=== PATIENT | male | born 1940 | race Caucasian/White ===

== ENCOUNTER → 2018-07-17 13:20 | Outpatient (BNVA) | payer MEDICARE, OTHER, SELFPAY | PROVIDERS: PCP Family Medicine; Visit Provider Urology | DX: N40.1 Benign prostatic hyperplasia with lower urinary tract symptoms (principal); R39.198 Other difficulties with micturition | CPT/HCPCS: 99213 ==

== ENCOUNTER 2018-11-12 09:48 | Outpatient (CLI) | payer MEDICARE, OTHER, SELFPAY ==
[2018-11-12 11:09] LABS: Anion Gap 6.8 mmol/L (3-11); BUN 17 mg/dL (7-18); CO2 30.2 mmol/L (21.0-32.0); Calcium 9.1 mg/dL (8.5-10.1); Chloride 104 mmol/L (98-107); Glucose 205 mg/dL (70-100); Potassium 5.1 mmol/L (3.5-5.1); Sodium 141 mmol/L (136-145)
== END 2018-11-12 10:08 ==
PROVIDERS: PCP Family Medicine; Visit Provider Family Medicine
DX: N18.9 Chronic kidney disease, unspecified (principal)
CPT/HCPCS: 36415; 80048

== ENCOUNTER 2019-03-04 00:57 | Outpatient (CLI) | payer MEDICARE, OTHER, SELFPAY ==
--- NOTE | 2019-03-04 07:31 | DI.US_ITS ---
SYMPTOM/DIAGNOSIS: F/U AAA, I71.4 AORTA ULTRASOUND: Limited ultrasound examination was performed to evaluate abdominal aortic aneurysm. There is an aneurysm of the distal abdominal aorta as noted on previous ultrasound of 04/29/16 at which time the infrarenal aneurysm was measured at about 5.0 cm. in diameter. On today's examination, the aneurysm is again seen and maximal diameter is 57 by 57 mm. Common iliac arteries are within normal limits in diameter measuring 15 mm. in greatest diameter on the right and 17 mm. in diameter on the left. No aneurysm of the proximal abdominal aorta is seen. CONCLUSION: Saccular aneurysm, infrarenal, maximal diameter of 57 mm., increased from 50 mm. on examination of 04/29/16.
== END 2019-03-04 01:17 ==
PROVIDERS: PCP Family Medicine; Visit Provider Family Medicine
DX: I71.4 Abdominal aortic aneurysm, without rupture (principal)
CPT/HCPCS: 76775

== ENCOUNTER 2019-04-08 10:54 | Outpatient (CLI) | payer MEDICARE, OTHER, SELFPAY ==
[2019-04-08 11:20] LABS: CREATININE 1.18 mg/dL (0.70-1.30); Estimated GFR 59.55 (mL/min/1.73m2)
== END 2019-04-08 11:14 ==
PROVIDERS: PCP Family Medicine; Visit Provider Surgery
DX: I71.4 Abdominal aortic aneurysm, without rupture (principal)
CPT/HCPCS: 36415; 82565

== ENCOUNTER → 2019-07-25 12:39 | Outpatient (BNVA) | payer MEDICARE, OTHER, SELFPAY | PROVIDERS: PCP Family Medicine; Referring Provider Family Medicine; Visit Provider Urology | DX: N40.1 Benign prostatic hyperplasia with lower urinary tract symptoms (principal); R35.1 Nocturia; I10 Essential (primary) hypertension; E11.9 Type 2 diabetes mellitus without complications | CPT/HCPCS: 99213 ==

== ENCOUNTER → 2019-09-03 13:46 | Outpatient (BNVA) | payer MEDICARE, OTHER, SELFPAY | PROVIDERS: PCP Family Medicine; Referring Provider Family Medicine; Visit Provider Student in an Organized Health Care Education/Training Program | DX: M65.311 Trigger thumb, right thumb (principal); E11.9 Type 2 diabetes mellitus without complications; Z79.84 Long term (current) use of oral hypoglycemic drugs; I10 Essential (primary) hypertension | CPT/HCPCS: 99204; 99215 ==

== ENCOUNTER 2019-09-05 07:28 | Day surgery (SDC) | payer MEDICARE, OTHER, SELFPAY ==
--- NOTE | 2019-09-05 07:28 | W.PM.DSUDISC ---
Discharge Plan Disposition Patient Disposition: HOME Condition: Stable Discharge Details Reason For Visit: (R) TRIGGER FINGER Attending Provider: Matthieu Collins Primary Care Provider: Fabián Dawn Home Meds and New Rx's Prescriptions: New oxycodone 5 mg tablet 5 mg PO Q4H PRN (Reason: pain, severe) Qty: 5 RF: 0 Continued metformin 1,000 mg tablet 1,000 mg PO BID Qty: 90 RF: 3 lisinopril 10 mg tablet 10 mg PO DAILY Qty: 90 RF: 3 tadalafil [Cialis] 5 mg tablet 5 mg PO DAILY Qty: 90 RF: 4 aspirin [Aspir-81] 81 MG tablet,delayed release (DR/EC) 81 mg PO DAILY RF: 0 Prilosec OTC 20 MG tablet,delayed release (DR/EC) 20 mg PO DAILY Qty: 90 RF: 1 atorvastatin 40 mg tablet 40 mg PO DAILY Qty: 90 RF: 3 amlodipine 10 mg tablet 10 mg PO DAILY 90 Days Qty: 90 RF: 3 PreserVision AREDS 1 EACH capsule 1 tab PO BID RF: 0 Discharge Instructions Additional Instructions: Surgery: Right thumb trigger release Activity: Gradual return to full activity for the next few weeks Prescriptions: Oxycodone 5 mg take 1-2 every 4-6 hours as needed for severe pain You may use [id number] Tylenol (acetaminophen) or Motrin (ibuprofen) as needed for mild to moderate pain. These pain medications may be taken all at once or in different combinations as needed. Also, recommend Colace (docusate) as a stool softener as surgery and pain medicine cause constipation. Dressings: Leave dressing in place for 3 to 5 days. Then may remove and cover incision with Band-Aids as needed. Keep incision clean and dry at all times until follow-up. Follow-up: 10-[address] Collins Please call the office during business hours with any questions or concerns. Let us know right away if you develop any redness, drainage, fevers, chest pain, or trouble breathing. Do not drink alcohol or drive for at least 24 hours after anesthesia. Stand Alone Forms: Yumiko Boothe (DSU) Referrals: Matthieu Collins MD [ [facility] STAFF PHYSICIAN] - Discharge Orders Discharge Orders: Discharge Order (Routine); Ordered 11/07/19 Ordered By: Matthieu Collins DS: Diagnosis Discharge Diagnosis (1) Trigger finger of right thumb: Start date: 09/05/19 Start time: 09:23 Status: Acute
[2019-09-05 07:47] VITALS: BP 168/73; PULSE 66; RESP 16; TEMP 36.2; O2SAT 97
--- NOTE | 2019-09-05 09:25 | W.PM.OP ---
Date of service: 09/05/19 Time of Service: 10:23 Operative Note Operative Note DATE OF PROCEDURE: 09/05/19 PRE-OP DIAGNOSIS: Right thumb trigger finger POST-OP DIAGNOSIS: same PROCEDURE: Right thumb trigger finger release SURGEON: Matthieu Collins [employer] DESIGNER: Osiris Fajardo ANESTHESIA: local ESTIMATED BLOOD LOSS: 5 COMPLICATIONS: None Patient was transported to: PACU Patient's condition: stable Indications: Please see complete medical record for details. Procedure Description: The patient was taken to the operating room and transferred to the operating room table. All bony prominences were well-padded. Preoperative antibiotics were omitted for clean hand surgery. The right upper extremity was prepped and draped in the usual sterile fashion. The correct patient, procedure, and side of the procedure were all verified prior to incision. The area about the incision was pre-injected with 9 cc of 1% lidocaine with epinephrine 1 cc of sodium bicarbonate. The thumb was held in opposition and a 2 cm transverse incision was made in a flexion crease centered over the thumb A1 regine. A combination of sharp and blunt dissection was used to expose the regine while taking care to retract and protect the area of the radial digital nerve. The regine was sharply incised using a 15 blade from distal to proximal. Complete release was confirmed by spreading with hemostat throughout. The FPL tendon was delivered from the wound using a Ragnell and found to have excellent excursion. The patient also demonstrated full active flexion and extension of the thumb without any mechanical symptoms. The wound was copiously irrigated. Hemostasis was confirmed. The skin was closed using 4-0 Monocryl in a buried interrupted fashion. Skin glue was applied over the incision. Nonadhesive gauze and dry gauze were applied on top followed by sterile web roll. Wrist and hand were wrapped and 2 inch Joe wrap. Patient tolerated local procedure well. He ablated back to the day surgery unit without complication.
[2019-09-05] MEDS: Sodium Bicarbonate 50 MEQ/50 ML VIAL (09:53)
[2019-09-05 10:40] VITALS: BP 177/80
== END 2019-09-05 10:48 | disposition home or self-care (01) ==
PROVIDERS: PCP Family Medicine; Visit Provider Student in an Organized Health Care Education/Training Program
PROC: (CPT 26055; principal; 2019-09-05 08:30)
DX: M65.311 Trigger thumb, right thumb (principal); I10 Essential (primary) hypertension; E11.9 Type 2 diabetes mellitus without complications; Z79.84 Long term (current) use of oral hypoglycemic drugs
CPT/HCPCS: 26055

== ENCOUNTER 2019-11-29 10:09 | Outpatient (CLI) | payer MEDICARE, OTHER, SELFPAY ==
[2019-11-29 11:06] LABS: Anion Gap 7.4 mmol/L (3-11); BUN 17 mg/dL (7-18); CO2 27.6 mmol/L (21.0-32.0); CREATININE 1.29 mg/dL (0.70-1.30); Calcium 8.6 mg/dL (8.5-10.1); Chloride 105 mmol/L (98-107); Estimated GFR 53.59 (mL/min/1.73m2); Glucose 191 mg/dL (74-106); Potassium 5.1 mmol/L (3.5-5.1); Sodium 140 mmol/L (136-145)
== END 2019-11-29 10:29 ==
PROVIDERS: PCP Family Medicine; Visit Provider Family Medicine
DX: I10 Essential (primary) hypertension (principal)
CPT/HCPCS: 36415; 80048

== ENCOUNTER → 2019-12-26 13:52 | Outpatient (BNVA) | payer MEDICARE, OTHER, SELFPAY | PROVIDERS: PCP Family Medicine; Referring Provider Family Medicine; Visit Provider Nurse Practitioner Gerontology | DX: R30.0 Dysuria (principal) | CPT/HCPCS: 81003; 99213 ==

== ENCOUNTER 2019-12-26 15:04 | Outpatient (REF) | payer MEDICARE, OTHER, SELFPAY | END 2019-12-26 15:24 | LOC: LBN 15:04 | PROVIDERS: PCP Family Medicine; Visit Provider Nurse Practitioner Gerontology | DX: R30.0 Dysuria (principal) | CPT/HCPCS: 87086 ==

== ENCOUNTER → 2020-07-17 12:44 | Outpatient (BNVA) | payer MEDICARE, OTHER, SELFPAY | PROVIDERS: PCP Family Medicine; Referring Provider Family Medicine; Visit Provider Urology | DX: N40.0 Benign prostatic hyperplasia without lower urinary tract symptoms (principal); E11.9 Type 2 diabetes mellitus without complications; I10 Essential (primary) hypertension; Z79.84 Long term (current) use of oral hypoglycemic drugs | CPT/HCPCS: 81003; 99213 ==

== ENCOUNTER 2020-10-13 02:52 | Outpatient (CLI) | payer MEDICARE, OTHER, SELFPAY ==
[2020-10-13 11:00] LABS: BUN 20 mg/dL (7-18); CREATININE 1.33 mg/dL (0.70-1.30); Calcium 9.3 mg/dL (8.5-10.1); Chloride 104 mmol/L (98-107); Estimated GFR 51.61 (mL/min/1.73m2); Glucose 172 mg/dL (74-106); Potassium 5.6 mmol/L (3.5-5.1); Sodium 140 mmol/L (136-145)
== END 2020-10-13 03:12 ==
PROVIDERS: PCP Family Medicine; Visit Provider Family Medicine
DX: E11.9 Type 2 diabetes mellitus without complications (principal)
CPT/HCPCS: 36415; 80048

== ENCOUNTER 2021-01-20 04:20 | Outpatient (CLI) | payer MEDICARE, OTHER, SELFPAY ==
[2021-01-20 12:37] LABS: Anion Gap 8.8 mmol/L (3-11); BUN 24 mg/dL (7-18); CO2 25.2 mmol/L (21.0-32.0); CREATININE 1.2 mg/dL (0.70-1.30); Calcium 8.7 mg/dL (8.5-10.1); Chloride 105 mmol/L (98-107); Estimated GFR 58.11 (mL/min/1.73m2); Glucose 199 mg/dL (74-106); Potassium 5.3 mmol/L (3.5-5.1); Sodium 139 mmol/L (136-145)
== END 2021-01-20 04:21 | disposition home or self-care (01) ==
LOC: LBO 04:20
PROVIDERS: PCP Family Medicine; Visit Provider Family Medicine
DX: E27.49 Other adrenocortical insufficiency (principal)
CPT/HCPCS: 36415; 80048

== ENCOUNTER → 2021-07-20 07:52 | Outpatient (BNVA) | payer MEDICARE, OTHER, SELFPAY | PROVIDERS: PCP Family Medicine; Referring Provider Family Medicine; Visit Provider Urology | DX: N40.0 Benign prostatic hyperplasia without lower urinary tract symptoms (principal); R97.20 Elevated prostate specific antigen [PSA]; Z79.899 Other long term (current) drug therapy | CPT/HCPCS: 99213 ==

== ENCOUNTER 2021-07-31 18:39 | Emergency (ER) | payer MEDICARE, OTHER, SELFPAY ==
[2021-07-31] VITALS (11 sets, daily range): BP systolic 177–243; BP diastolic 53–97; PULSE 48–62; RESP 13–40; TEMP 36.5; O2SAT 95–97
--- NOTE | 2021-07-31 19:29 | ED.GENADUL_ITS ---
Discharge Plan Disposition Patient Disposition: HOME Condition: Good Discharge Details Clinical Impression: Elevated blood pressure reading Primary Care Provider: Fabián Dawn ED Provider: Elaine Andrew Home Meds and New Rx's Prescriptions: New hydrochlorothiazide 12.5 mg capsule 12.5 mg PO DAILY Qty: 2 RF: 0 Continued tadalafil [Cialis] 5 mg tablet 5 mg PO DAILY Qty: 90 RF: 4 atenolol 50 mg tablet 50 mg PO DAILY Qty: 90 RF: 3 atorvastatin 40 mg tablet 40 mg PO DAILY Qty: 90 RF: 3 aspirin [Aspir-81] 81 MG tablet,delayed release (DR/EC) 81 mg PO DAILY RF: 0 omeprazole magnesium [Prilosec OTC] 20 MG tablet,delayed release (DR/EC) 20 mg PO DAILY Qty: 90 RF: 1 amlodipine 10 mg tablet 10 mg PO DAILY 90 Days Qty: 90 RF: 3 lisinopril 40 mg tablet 40 mg PO DAILY Qty: 90 RF: 3 metformin 1,000 mg tablet 1,000 mg PO BID Qty: 180 RF: 3 PreserVision AREDS 1 EACH capsule 1 tab PO BID RF: 0 Discharge Instructions Additional Instructions: Take the hydrochlorothiazide if your blood pressure is elevated over 190, take 12.5 mg, you may take an additional dose in 12 hours should he have persistently elevated blood pressure over 190 Keep your appointment with your doctor Continue all your additional prescribed medications Should you develop headache, dizziness, chest pain, shortness of breath with elevated blood pressure you must be reevaluated immediately Please return earlier should you have new or worsening complaints Referrals: Fabián Dawn DO [Primary Care Provider] - Discharge Data Discharge Date/Time-TO BE ENTERED AT DEPARTURE: 07/31/21 19:40 Medical Decision Making Patient is alert and oriented at baseline I spoke with his Fatou ATKINS and she is comfortable with CT imaging and chest x-ray Chest x-ray does not show evidence of pneumonia CT head and cervical spine do not show evidence of acute abnormality Patient did have a left humeral fracture visualized that is removed in nature Patient tolerated suture placement without incident He has been alert baseline since the event occurred He will be discharged back to the rehab center and is comfortable with this plan Tetanus to date Return precautions discussed Suture will need to be removed in the next 7 days Medical Records Medical records reviewed: Yes I reviewed the patient's medical records. HPI General Mode of arrival: ambulatory . Date/Time Provider Initiated Documentation: 07/31/21 19:01 . Limitations to Documentation: no limitations . Information obtained by: patient . HPI Narrative: This 80-year-old male with history of carotid stenosis, dementia, BPH, hyperlipidemia presents with report of fall. He was reportedly trying to care for his pants down and stand up to use the restroom when he lost his balance, falling. There was no loss of consciousness. He was helped up immediately and EMS was called for evaluation. He acquired a laceration. His tetanus is reportedly up-to-date. He has not reportedly been vomiting and is not anticoagulated. There were no additional required injuries reportedly. Related Data Home Medications Medication Instructions Recorded Confirmed aspirin [Aspir-81] 81 mg PO DAILY tab-cap 02/14/13 07/31/21 PreserVision AREDS 1 tab PO BID 12/15/16 07/31/21 omeprazole magnesium [Prilosec OTC] 20 mg PO DAILY #90 cap 07/04/17 07/31/21 amlodipine 10 mg tablet 10 mg PO DAILY 90 Days #90 tab-cap 03/21/19 07/31/21 lisinopril 40 mg tablet 40 mg PO DAILY #90 tab 10/28/20 07/31/21 atorvastatin 40 mg tablet 40 mg PO DAILY #90 tab-cap 02/01/21 07/31/21 metformin 1,000 mg tablet 1,000 mg PO BID #180 tab 02/02/21 07/31/21 atenolol 50 mg tablet 50 mg PO DAILY #90 tab 05/04/21 07/31/21 tadalafil 5 mg tablet 5 mg PO DAILY #90 tab-cap 07/20/21 07/31/21 hydrochlorothiazide 12.5 mg PO DAILY #2 cap 07/31/21 Previous Rx's Medication Instructions Recorded amlodipine 10 mg tablet 10 mg PO DAILY 90 Days #90 tab-cap 03/21/19 lisinopril 40 mg tablet 40 mg PO DAILY #90 tab 10/28/20 atorvastatin 40 mg tablet 40 mg PO DAILY #90 tab-cap 02/01/21 metformin 1,000 mg tablet 1,000 mg PO BID #180 tab 02/02/21 atenolol 50 mg tablet 50 mg PO DAILY #90 tab 05/04/21 tadalafil 5 mg tablet 5 mg PO DAILY #90 tab-cap 07/20/21 hydrochlorothiazide 12.5 mg PO DAILY #2 cap 07/31/21 Allergies Allergy/AdvReac Type Severity Reaction Status Date / Time tamsulosin AdvReac Intermediate Dizziness Verified 07/31/21 18:51 General Stated Complaint: GenMedical PELON: 3 Review of Systems All systems reviewed & are unremarkable except as noted in HPI and below PFSH Medical History (Updated 07/31/21 @ 19:31 by ARCADIO Chiu) Abdominal aortic aneurysm (AAA) without rupture (04/29/16) Abdominal US: 5cm AAA above bifurcation; 4.8 x 4.2 by CTA [facility] Dr Morales Wright, f/u 09/2016 [facility]; Bruit 04/17/19 5.1 cm , 10/21/19 5.4 cm, repeat 6 mos. 06/22/20 AAA=5.6 cm Alkaline phosphatase raised (02/08/12) bone (normal GGT repeatedly) BPH w/o urinary obs/LUTS bx neg 05/2010 Diabetes mellitus (04/29/02) DX 2001 MULTIPLE FBS>126; ONE PP 276 IN 12/2005; A1C 7.0 IN 2002; CONTROL DIET, METFORMIN, EXERCISE Elevated PSA (06/20/16) Essential hypertension (01/31/00) h/o hctz, lisinopril; d/c hctz 11/2013; d/c lisinopril 12/2013, resume lisinopril 06/2014 Gastroesophageal reflux disease (02/08/12) Heart murmur, systolic (05/31/16) mild /AR on ECHO 06/06/16, EF 60% Hyperlipidemia (02/08/12) Hypoaldosteronism (11/04/16) ttendency to hyperkalemia: no salt substitutes Obesity, unspecified (02/08/12) Peripheral vascular disease s/p bilateral carotid endarterectomies ~2002 Sensorineural hearing loss, bilateral (07/09/15) Trigger finger of right thumb Surgical History cataract extraction (07/07/15) intraocular lens implant right Dr Ortiz; also Left cataract extraction (07/21/15) intraocular lens implant right Dr Ortiz; also Left Extraction of cataract Prostate Biopsy (06/08/10) [facility] for elevated PSA, neg Family History Mother , old age at age 95. No problems noted. Father , liver problems at age 68. Liver disease Brother , brain aneurysm at age 64. No problems noted. Brother Age: 87 Neoplasm Social History (Updated 08/10/20 @ 14:03 by Deysi Cornell LPN) Smoking/Tobacco Use Status: Former Tobacco Use Quit Date: 08/30/19 Smoking risk assessment performed?: Yes Alcohol Intake: current Alcohol Intake frequency: a few times a week Drug use: Never Substance use type: does not use Household members: significant other Housing: house Communication Needs: Hard of Hearing and Corrective Lenses Pets and animals: Yes Pets and animals: dog(s) Current gender identity: male What is your relationship status?: Panel score (0-1 are the most socially isolated patients): 0 What type of physical activity do you participate in: other Details: physically active daily 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 2 inch laceration noted Mouth: oral mucosae normal Other: Uvula midline, no hemotympanum Eyes Pupils: PERRL Neck Other: No midline tenderness Resp Effort & Inspection: normal respiratory effort Auscultation: clear to auscultation bilaterally Cardio Rate: regular rate Rhythm: regular rhythm GI Other: Nontender abdominal exam, no CVA tenderness Neuro General: patient alert and patient oriented x3 Cognition: normal cognition Speech: speech normal Extrem Other: No tenderness with palpation visible evidence of trauma to bilateral upper lower extremity, small abrasions noted to right knee, range of motion intact, neurovascularly intact Psych Appearance: grossly normal and well kempt Speech and Movement: speech and movement normal Course Vital Signs Vital signs: Vital Signs Temperature 36.5 C 07/31/21 18:44 Pulse 62 07/31/21 18:44 Respiratory Rate 15 07/31/21 18:44 Blood Pressure 243/75 H 07/31/21 18:44 Pulse Oximetry 96 07/31/21 18:44 Temperature 36.5 C 07/31/21 18:44 Temperature Source Skin 07/31/21 18:44 Pulse 48 L 07/31/21 19:01 Pulse 50 L 07/31/21 19:01 Respiratory Rate 14 07/31/21 19:01 Respiratory Effort Non-Labored 07/31/21 18:44 Blood Pressure 189/53 H 07/31/21 19:01 Blood Pressure Mean 89 07/31/21 19:01 Blood Pressure Position Supine 07/31/21 18:44 Pulse Oximetry 95 07/31/21 19:01 Oxygen Delivery Method Room Air 07/31/21 18:44 Oxygen Flow Rate 0 07/31/21 18:44 Pain Level 2 07/31/21 18:44 Procedures Laceration Laceration 1: Site: scalp Size (cm): 4 Description: flap Depth: simple, single layer Local Anesthetic: Lidocaine 1% and with Epi Amount of anesthesia used (mL): 3 Pre-repair: wound explored Skin layer closed with: nylon Size (cm): 5-0 Number of sutures: 7 PAWSS Have you Been Recently Intoxicated or Drunk Within the Last 30 days?: No Have you Ever Experienced Previous Episodes of Alcohol Withdrawal?: No Have you ever Experienced Withdrawal Seizures?: No Have you ever Experienced Delirium Tremens(DT)s?: No Have you ever undergone Alcohol Rehabilitation Treatment (i.e, inpt ot outpatient treatment programs)?: No Have you ever Experienced Blackouts?: No Have you ever Combined Alcohol with other Downers within the last 90 days?: No Have you ever Combined Alcohol with any other Substance of Abuse during the last 90 days?: No Positive Blood Alcohol level on Presentation? [PCS.BAL]: No Evidence of Increased Autonomic Activity (i.e. HR>120, tremor, sweating, agitation, nausea)?: No Result: 0
[2021-07-31] MEDS: hydroCHLOROthiazide 25 MG TAB (19:42)
--- NOTE | 2021-07-31 22:23 | ED.GENADUL_ITS ---
Discharge Plan Disposition Patient Disposition: HOME Condition: Good Discharge Details Clinical Impression: Elevated blood pressure reading Primary Care Provider: Fabián Dawn ED Provider: Elaine Andrew Home Meds and New Rx's Prescriptions: New hydrochlorothiazide 12.5 mg capsule 12.5 mg PO DAILY Qty: 2 RF: 0 Continued tadalafil [Cialis] 5 mg tablet 5 mg PO DAILY Qty: 90 RF: 4 atenolol 50 mg tablet 50 mg PO DAILY Qty: 90 RF: 3 atorvastatin 40 mg tablet 40 mg PO DAILY Qty: 90 RF: 3 aspirin [Aspir-81] 81 MG tablet,delayed release (DR/EC) 81 mg PO DAILY RF: 0 omeprazole magnesium [Prilosec OTC] 20 MG tablet,delayed release (DR/EC) 20 mg PO DAILY Qty: 90 RF: 1 amlodipine 10 mg tablet 10 mg PO DAILY 90 Days Qty: 90 RF: 3 lisinopril 40 mg tablet 40 mg PO DAILY Qty: 90 RF: 3 metformin 1,000 mg tablet 1,000 mg PO BID Qty: 180 RF: 3 PreserVision AREDS 1 EACH capsule 1 tab PO BID RF: 0 Discharge Instructions Additional Instructions: Take the hydrochlorothiazide if your blood pressure is elevated over 190, take 12.5 mg, you may take an additional dose in 12 hours should he have persistently elevated blood pressure over 190 Keep your appointment with your doctor Continue all your additional prescribed medications Should you develop headache, dizziness, chest pain, shortness of breath with elevated blood pressure you must be reevaluated immediately Please return earlier should you have new or worsening complaints Referrals: Fabián Dawn DO [Primary Care Provider] - Discharge Data Discharge Date/Time-TO BE ENTERED AT DEPARTURE: 07/31/21 19:40 Medical Decision Making Patient with blood pressure of 170/80 at time of reassessment, afebrile with a nonfocal neurological exam I gave patient several days of hydrochlorothiazide after reviewing his previous labs may take should he have persistently elevated blood pressure He has an appointment with his doctor on Monday Instructed that he should return to the emergency room immediately should he have chest pain, shortness of breath, headache, dizziness with elevated blood pressure He is discharged home in stable condition with stable vitals There is no evidence of TIA or hypertensive urgency on evaluation today No indication for blood work or EKG is asymptomatic Orthostatic negative Medical Records Medical records reviewed: Yes I reviewed the patient's medical records. Lab Data Lab results reviewed: Yes I reviewed the patient's lab results. HPI General Mode of arrival: ambulatory . Date/Time Provider Initiated Documentation: 07/31/21 19:01 . Limitations to Documentation: no limitations . Information obtained by: patient . HPI Narrative: This 80-year-old male presents with elevated blood pressure at home, 200/90. He states that he was just doing a routine blood pressure check when he noted that it was elevated. Denies any chest pain or shortness of breath. Denies any dizziness or weakness. States that he did have an episode of lightheadedness and a mild headache which he experiences daily and have experienced these symptoms for the past 6 months. She is currently asymptomatic and actually feeling improved. He denies any vision change, chest pain, shortness of breath, or any additional complaints at this time. He denies any numbness or tingling. Related Data Home Medications Medication Instructions Recorded Confirmed aspirin [Aspir-81] 81 mg PO DAILY tab-cap 02/14/13 07/31/21 PreserVision AREDS 1 tab PO BID 12/15/16 07/31/21 omeprazole magnesium [Prilosec OTC] 20 mg PO DAILY #90 cap 07/04/17 07/31/21 amlodipine 10 mg tablet 10 mg PO DAILY 90 Days #90 tab-cap 03/21/19 07/31/21 lisinopril 40 mg tablet 40 mg PO DAILY #90 tab 10/28/20 07/31/21 atorvastatin 40 mg tablet 40 mg PO DAILY #90 tab-cap 02/01/21 07/31/21 metformin 1,000 mg tablet 1,000 mg PO BID #180 tab 02/02/21 07/31/21 atenolol 50 mg tablet 50 mg PO DAILY #90 tab 05/04/21 07/31/21 tadalafil 5 mg tablet 5 mg PO DAILY #90 tab-cap 07/20/21 07/31/21 hydrochlorothiazide 12.5 mg PO DAILY #2 cap 07/31/21 Previous Rx's Medication Instructions Recorded amlodipine 10 mg tablet 10 mg PO DAILY 90 Days #90 tab-cap 03/21/19 lisinopril 40 mg tablet 40 mg PO DAILY #90 tab 10/28/20 atorvastatin 40 mg tablet 40 mg PO DAILY #90 tab-cap 02/01/21 metformin 1,000 mg tablet 1,000 mg PO BID #180 tab 02/02/21 atenolol 50 mg tablet 50 mg PO DAILY #90 tab 05/04/21 tadalafil 5 mg tablet 5 mg PO DAILY #90 tab-cap 07/20/21 hydrochlorothiazide 12.5 mg PO DAILY #2 cap 07/31/21 Allergies Allergy/AdvReac Type Severity Reaction Status Date / Time tamsulosin AdvReac Intermediate Dizziness Verified 07/31/21 18:51 General Stated Complaint: GenMedical PELON: 3 Review of Systems All systems reviewed & are unremarkable except as noted in HPI and below [facility] Medical History (Updated 07/31/21 @ 19:31 by ARCADIO Chiu) Abdominal aortic aneurysm (AAA) without rupture (04/29/16) Abdominal US: 5cm AAA above bifurcation; 4.8 x 4.2 by CTA [facility] Dr Morales Wright, f/u 09/2016 [facility]; Bruit 04/17/19 5.1 cm , 10/21/19 5.4 cm, repeat 6 mos. 06/22/20 AAA=5.6 cm Alkaline phosphatase raised (02/08/12) bone (normal GGT repeatedly) BPH w/o urinary obs/LUTS bx neg 05/2010 Diabetes mellitus (04/29/02) DX 2001 MULTIPLE FBS>126; ONE PP 276 IN 12/2005; A1C 7.0 IN 2002; CONTROL DIET, METFORMIN, EXERCISE Elevated PSA (06/20/16) Essential hypertension (01/31/00) h/o hctz, lisinopril; d/c hctz 11/2013; d/c lisinopril 12/2013, resume lisino pril 06/2014 Gastroesophageal reflux disease (02/08/12) Heart murmur, systolic (05/31/16) mild /AR on ECHO 06/06/16, EF 60% Hyperlipidemia (02/08/12) Hypoaldosteronism (11/04/16) ttendency to hyperkalemia: no salt substitutes Obesity, unspecified (02/08/12) Peripheral vascular disease s/p bilateral carotid endarterectomies ~2002 Sensorineural hearing loss, bilateral (07/09/15) Trigger finger of right thumb Surgical History cataract extraction (07/07/15) intraocular lens implant right Dr Ortiz; also Left cataract extraction (07/21/15) intraocular lens implant right Dr Ortiz; also Left Extraction of cataract Prostate Biopsy (06/08/10) [facility] for elevated PSA, neg Family History Mother , old age at age 95. No problems noted. Father , liver problems at age 68. Liver disease Brother , brain aneurysm at age 64. No problems noted. Brother Age: 87 Neoplasm Social History (Updated 08/10/20 @ 14:03 by Deysi Cornell LPN) Smoking/Tobacco Use Status: Former Tobacco Use Quit Date: 08/30/19 Smoking risk assessment performed?: Yes Alcohol Intake: current Alcohol Intake frequency: a few times a week Drug use: Never Substance use type: does not use Household members: significant other Housing: house Communication Needs: Hard of Hearing and Corrective Lenses Pets and animals: Yes Pets and animals: dog(s) Current gender identity: male What is your relationship status?: Panel score (0-1 are the most socially isolated patients): 0 What type of physical activity do you participate in: other Details: physically active daily 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 Working smoke detector in home: Yes Carbon monox detector in home: Yes Do you feel safe at home: Yes Do you feel safe in your relationship?: Yes Exam Const General: cooperative and no acute distress HENMT Head: normal to inspection Other: Uvula midline Eyes Pupils: PERRL EOM: EOM intact bilaterally Neck Other: No carotid bruit Resp Effort & Inspection: normal respiratory effort Auscultation: clear to auscultation bilaterally Cardio Rate: regular rate Rhythm: regular rhythm GI Other: No abdominal bruit or pulsatile mass Skin General skin exam: no rashes or lesions noted Neuro General: patient alert and patient oriented x3 Cranial Nerves: CN's II-XI intact bilaterally Extrem Other: No peripheral edema Course Vital Signs Vital signs: Vital Signs Temperature 36.5 C 07/31/21 18:44 Pulse 62 07/31/21 18:44 Respiratory Rate 15 07/31/21 18:44 Blood Pressure 243/75 H 07/31/21 18:44 Pulse Oximetry 96 07/31/21 18:44 Temperature 36.5 C 07/31/21 18:44 Temperature Source Skin 07/31/21 18:44 Pulse 50 L 07/31/21 19:23 Pulse 52 L 07/31/21 19:10 Respiratory Rate 13 07/31/21 19:10 Respiratory Effort Non-Labored 07/31/21 19:38 Respiratory Depth Normal 07/31/21 19:38 Respiratory Pattern Normal 07/31/21 19:38 Blood Pressure 181/71 H 07/31/21 19:23 Blood Pressure Mean 98 07/31/21 19:23 Blood Pressure Position Supine 07/31/21 18:44 Pulse Oximetry 95 07/31/21 19:23 Oxygen Delivery Method Room Air 07/31/21 18:44 Oxygen Flow Rate 0 07/31/21 18:44 Pain Level 2 07/31/21 18:44 PAWSS Have you Been Recently Intoxicated or Drunk Within the Last 30 days?: No Have you Ever Experienced Previous Episodes of Alcohol Withdrawal?: No Have you ever Experienced Withdrawal Seizures?: No Have you ever Experienced Delirium Tremens(DT)s?: No Have you ever undergone Alcohol Rehabilitation Treatment (i.e, inpt ot outpatient treatment programs)?: No Have you ever Experienced Blackouts?: No Have you ever Combined Alcohol with other Downers within the last 90 days?: No Have you ever Combined Alcohol with any other Substance of Abuse during the last 90 days?: No Positive Blood Alcohol level on Presentation? [PCS.BAL]: No Evidence of Increased Autonomic Activity (i.e. HR>120, tremor, sweating, agitation, nausea)?: No Result: 0
== END 2021-07-31 19:40 | disposition home or self-care (01) ==
PROVIDERS: Emergency Provider Physician Assistant; PCP Family Medicine
DX: I10 Essential (primary) hypertension (principal)
CPT/HCPCS: 99283

== ENCOUNTER → 2022-05-24 02:51 | Outpatient (CLI) | payer MEDICARE, OTHER, SELFPAY ==
--- NOTE | 2022-05-24 07:00 | DI.US_ITS ---
Exam(s) US RENAL EXAM: US RENAL CLINICAL HISTORY: ENLARGING LT RENAL MASS ON CT ANGIOGRAM, N28.89. TECHNIQUE: Mckeon scale, color and spectral Doppler were used. COMPARISON: CT CT ANGIOGRAM ABDOMEN AND PELVIS W CONTRAST (GENERIC) from 01/20/2022 FINDINGS: Renal size in cm: Right: 11.2. Left: 10.4. Echogenicity: Normal. Hydronephrosis: No. Cyst or mass: 2 simple cysts are seen on the right kidney. The largest measures 2.3 x 2.2 x 2.4 cm. These are present on the CT scan from 01/20/2022. There are cysts seen on the left kidney. The larg est measures 3 x 2.5 x 2.5 cm. This correlates to the cysts seen on the CT scan from 01/20/2022. The re does appear to be a thin septation within the cyst. There is a question of a nodule along the wal l of the cyst. Nephrolithiasis: No. Other findings: None. Bladder:The urinary bladder wall has a trabeculated appearance. No intraluminal mass is seen. This may be due to a neurogenic bladder or bladder outlet obstruction secondary to the large prostate glan d. Ureteral jets: Right: Not visualized on this examination. Left: Visualized and unremarkable. Prevoid vol:206 cc Postvoid vol:116 cc Prostate: 180 cc Renal color flow: Symmetric and within normal limits. IMPRESSION: 1. Bilateral simple renal cysts. 2. Complex left renal cysts corresponding to the CT abnormality from 01/20/2022. It appears to have a septation and/or nodule along the wall. An MRI of the kidneys with without contrast is recommended for further evaluation. 3. Markedly enlarged prostate gland. DATA REPOSITORY:
== END ==
PROVIDERS: PCP Family Medicine; Visit Provider Surgery
DX: N28.89 Other specified disorders of kidney and ureter (principal); N28.1 Cyst of kidney, acquired; N40.0 Benign prostatic hyperplasia without lower urinary tract symptoms
CPT/HCPCS: 76770

== ENCOUNTER → 2022-07-22 09:33 | Outpatient (BNVA) | payer MEDICARE, OTHER, SELFPAY | PROVIDERS: PCP Family Medicine; Referring Provider Family Medicine; Visit Provider Urology | DX: R35.0 Frequency of micturition (principal); N28.89 Other specified disorders of kidney and ureter; R97.20 Elevated prostate specific antigen [PSA]; N40.1 Benign prostatic hyperplasia with lower urinary tract symptoms | CPT/HCPCS: 99214 ==

== ENCOUNTER 2022-11-23 01:21 | Outpatient (CLI) | payer MEDICARE, SELFPAY ==
--- NOTE | 2022-11-23 | DI.US_ITS ---
Exam(s) US RENAL EXAM: US RENAL CLINICAL HISTORY: RENAL CYST, ACQUIRED N28.1, COMPLEX RENAL CYST. TECHNIQUE: Mckeon scale, color and spectral Doppler were used. COMPARISON: US RENAL ULTRASOUND(P) from 11/08/2016 US US AAA diagnostic from 03/04/[address] ANGIOGRAM ABDOMEN AND PELVIS W CONTRAST (GENERIC) from 01/20/2022 US US RENAL from 05/24/2022 FINDINGS: Renal size in cm: Right: 10.0 left: 12.1 Echogenicity: Normal Hydronephrosis: No Cyst or mass: Right kidney: 2 simple cysts, midpole cyst measuring. Lower pole cyst 2.12.4 cm in max imal dimension. Left kidney: 9 millimeter cyst near upper pole. 2.4 centimeter maximal dimension cyst mid to lower l eft kidney. This is is measuring smaller when compared with the previous exam. No septation is visi ble on the current study. Nephrolithiasis: No The prostate is markedly enlarged and shows multiple cystic spaces with volume of 171 cc Bladder:Thickened trabeculated wall. Prevoid vol:157 Postvoid vol:68 IMPRESSION: Bilateral renal cysts appear simple on today's examination. Markedly enlarged prostate with cystic spaces. Bladder wall thickening and elevated postvoid residual. DATA REPOSITORY:
== END 2022-11-23 01:41 ==
LOC: DI 01:21
PROVIDERS: PCP Family Medicine; Visit Provider Surgery
DX: N28.1 Cyst of kidney, acquired (principal); N40.0 Benign prostatic hyperplasia without lower urinary tract symptoms; N32.89 Other specified disorders of bladder
CPT/HCPCS: 76770

== ENCOUNTER 2022-11-28 02:48 | Outpatient (CLI) | payer MEDICARE, OTHER, SELFPAY ==
[2022-11-28 13:02] LABS: Anion Gap 9.8 mmol/L (3-11); BUN 23 mg/dL (7-18); CO2 25.2 mmol/L (21.0-32.0); CREATININE 1.3 mg/dL (0.70-1.30); Calcium 8.8 mg/dL (8.5-10.1); Chloride 104 mmol/L (98-107); Estimated GFR 54.51 (mL/min/1.73m2); Glucose 195 mg/dL (74-106); Potassium 5.1 mmol/L (3.5-5.1); Sodium 139 mmol/L (136-145)
== END 2022-11-28 02:49 | disposition home or self-care (01) ==
LOC: LBO 02:48
PROVIDERS: PCP Family Medicine; Referring Provider Family Medicine; Visit Provider Family Medicine
DX: N28.89 Other specified disorders of kidney and ureter (principal)
CPT/HCPCS: 36415; 80048

== ENCOUNTER 2023-05-25 03:00 | Outpatient (CLI) | payer MEDICARE, OTHER, SELFPAY ==
--- NOTE | 2023-05-25 | DI.CT_ITS ---
Exam(s) CT ABDOMEN WO/W EXAM: CT ABDOMEN WO/W CLINICAL HISTORY: RENAL CYST,N28.1. TECHNIQUE: Imaging Protocol: CT urogram protocol. Performed both pre and postcontrast and with soheila tional 5 minutes delay postcontrast sequence. Axial computed tomography images with coronal and sagi ttal reformatted images were created and reviewed. Limited to the abdomen. Pelvis was not scanned. CONTRAST MATERIAL: Intravenous: Omnipaque-350 100cc Oral: None COMPARISON: CT CT ANGIOGRAM ABDOMEN AND PELVIS W CONTRAST (GENERIC) from 01/20/2022 FINDINGS: VISUALIZED LUNG BASES: No nodules nor pleural effusions evident. ABDOMEN: There is no ascites. LIVER: There are no focal hepatic lesions evident. No dilated intrahepatic ducts. GALLBLADDER/BILIARY: No obvious gallbladder pathology. CBD is not dilated. PANCREAS: No evidence of pancreatic mass nor dilatation of the pancreatic duct. SPLEEN: Spleen is not enlarged. No obvious intrasplenic lesions. Splenic and portal veins are paten t. ADRENALS: There are no significant adrenal masses. KIDNEYS:Both kidneys exhibit age-appropriate size, this despite significant atherosclerotic involveme nt of the renal artery ostiae, described on prior outside CT angiogram. There are 3 benign cysts in the right kidney again noted, the largest measuring 2.6 x 2.5 cm. The si mple benign right kidney cysts require no further workup. There is no solid lesion in the right kidn ey. No calculi in the right kidney. No hydronephrosis. In the left kidney there are small cortical cysts. There is also an additional finding in the fire sprinkler inspector olateral cortex which measures approximately 2.7 x 2.1 cm and which is denser than a typical cyst but exhibits homogeneous density throughout and is most probably a hemorrhagic cyst. The adjacent infun dibulum and ipsilateral renal pelvis appear unremarkable. There is no evidence of intraluminal filli ng defect in the patent pre aortic left renal vein. There is a solitary nondilated ureter on each side ABDOMINAL AORTA: The previously described abdominal aortic aneurysm again measures 5.4 cm in greatest diameter. LYMPH NODES:There is no retroperitoneal nor paraaortic adenopathy. ABDOMINAL WALL: No evidence of significant anterior abdominal wall nor inguinal hernia. GI: Prominent duodenal diverticulum noted. OSSEOUS: Fractures. No lytic nor blastic osseous lesions evident IMPRESSION: 1. There is a 2.7 x 2.1 cm finding in the left kidney which corresponds to what was described on prev ious outside CT angiogram study. This has more the appearance of a hemorrhagic cyst than an actual n eoplasm. Recommend follow-up ultrasound. 2. There are benign cysts in the opposite-right kidney measurements as above. No solid lesions in th e right kidney. 3. There are no renal calculi nor hydronephrosis. 4. 5.4 cm abdominal aortic aneurysm again noted. RADIATION DOSE DELIVERED: 1,536.02mGy.cm Total DLP DATA REPOSITORY: All CT scans at this facility are submitted to the National Radiology Data Registry (NRDR) Dose Index Registry (DIR) with the [employer] (ACR). RADIATION OPTIMIZATION: All CT scans at this facility use at least one of these dose optimization te chniques: automated exposure control; mA and/or kV adjustment per patient size (includes targeted exa ms where dose is matched to clinical indication); or iterative reconstruction.
[2023-05-25 08:59] LABS: CREATININE 1.2 mg/dL (0.70-1.30)
[2023-05-25] MEDS: Normal Saline - Diluent 50 ML VIAL IJ (09:07)
[2023-05-25] MEDS: Omnipaque 350 MG/ML 100 ML BTL IJ (09:07)
[2023-05-25] MEDS: Normal Saline Flush 10 ML SYR IVP (09:08)
== END 2023-05-25 03:20 ==
LOC: DI 03:02
PROVIDERS: PCP Family Medicine; Visit Provider Surgery
DX: N28.1 Cyst of kidney, acquired (principal); I71.40 Abdominal aortic aneurysm, without rupture, unspecified
CPT/HCPCS: 74170; 82565; J3490

== ENCOUNTER → 2023-07-21 09:38 | Outpatient (BNVA) | payer MEDICARE, OTHER, SELFPAY | PROVIDERS: PCP Family Medicine; Visit Provider Urology | DX: N40.0 Benign prostatic hyperplasia without lower urinary tract symptoms (principal); I10 Essential (primary) hypertension; E11.9 Type 2 diabetes mellitus without complications | CPT/HCPCS: 99213 ==

== ENCOUNTER → 2024-01-01 03:25 | Outpatient (CLI) | payer MEDICARE, SELFPAY ==
--- NOTE | 2024-01-01 13:00 | DI.US_ITS ---
APPROVED REPORT EXAM: Comprehensive 2D, Doppler, and color-flow Echocardiogram Patient Location: Out-Patient [employer] Administrator: Soco Pinon RDCS (AE) Indications: Pre operative evaluation AAA vascular surgery, GREGORY, Systolic Murmur Other Information Study Quality: Adequate Conclusion Normal left ventricular wall thickness and chamber size. Ejection fraction is 60%. Wall motion is n ormal Normal right ventricular size and function Both atria are normal in size Aortic valve is calcified and probably trileaflet. There is moderate aortic stenosis. Peak gradient is 46, mean is 30 mmHg. Calculated aortic valve area is 1.1 cm??. There is trace to mild aortic re gurgitation There is no additional significant valvular disease Wall motion Left Ventricle The left ventricle is normal size. The left ventricular systolic function is normal. The left ventric ular ejection fraction is within the normal range. There is normal left ventricular wall thickness. T here is normal LV segmental wall motion. There is no ventricular septal defect visualized. LVEF is 59 %. Right Ventricle The right ventricle is normal size. The right ventricular systolic function is normal. Atria The left atrium size is normal. The right atrium size is normal. The interatrial septum is intact wit h no evidence for an atrial septal defect. Aortic Valve Aortic valve is calcified. Aortic valve is probably trileaflet. Moderate aortic stenosis. Peak aortic valve gradient is 46.2mmHg. Highest mean aortic valve gradient is 30.5mmHg. Calculated MARVIN by the co ntinuity equation is 1.1cm2. Trace to mild aortic regurgitation. Mitral Valve The mitral valve is normal in structure. No evidence of mitral valve stenosis. Trace mitral regurgit ation. Tricuspid Valve The tricuspid valve is normal in structure. There is no tricuspid valve stenosis. Trace tricuspid reg urgitation. Unable to assess PA pressure. Pulmonic Valve Pulmonic valve is not well visualized. There is no pulmonic valvular stenosis. Trace pulmonic regurgi tation. Great Vessels The aortic root is normal in size. Ascending aorta is not well visualized. Aortic arch is not well vi sualized. IVC is normal in size and collapses >50% with inspiration. Pericardium There is no pericardial effusion. 2D Dimensions IVSD d PLAX 0.72 cm M: 0.6-1.2 Ao Root d 3.16 cm M: 3.1 - 3.7 LVPW d PLAX 0.75 cm M: 0.6 - 1.2 LVID d PLAX 4.75 cm M: 4.2 - 5.8 LVDs 3.21 cm M: 2.5 - 4.0 LV EF Teichholz 60.7 % FS 32.47 % LV EDV (Teich) 105.1 mL LV ESV (Teich) 41.2 mL M-Mode TAPSE 2.27 cm (M/F) >1.7 Auto EF LV EDV A4C 122.3 mL LV EDV A2C 105.0 mL LV EDV BP 114.8 mL LV ESV A4C 54.1 mL LV ESV A2C 40.2 mL LV ESV BP 47.4 mL LVEF(%) A4C 55.7 % LVEF(%) A2C 61.7 % LVEF(%) BP 58.7 % LV SV A4C 68.2 ml LV SV A2C 64.8 ml LV SV BP 67.4 ml LV CO A4C 3.4 L/min LV CO A2C 3.1 L/min LV CO BP 3.3 L/min HR A4C 50.41 BPM HR A2C 47.68 BPM LV EDV Index (BP) LV Strain Long Pk Overal Avg (s) 17.79 LA Volume LA Length A4C 6.0 cm LA Length A2C 5.8 cm LA Area A4C s 16.11 cm2 LA Area A2C s 21.23 cm2 LA Vol A4C A-L 36.50 mL LA Vol A2C A-L 65.40 mL LA Vol Biplane A-L 49.6 mL LA Vol/BSA A4C A-L LA Vol/BSA A2C A-L LA Vol/BSA BP A-L 23.2 mL/m2 LA Vol A4C MOD 34.9 mL LA Vol A2C MOD 59.6 mL LA Vol BP MOD 45.8 mL RA Volume RA Area A4C 14.7 cm2 RA ESV A4C (A-L) 32.6mL RA Vol/BSA A4C A-L RA Length A4C 5.7 cm RA ESV A4C (MOD) 30.6mL LV Diastology MV E' medial 0.055 (>0.07 m/s) MV E Vmax 0.57 (0.4-1.3 m/s) MV E/E' MED 10.33 (<14) MV A Vmax 1.00 (0.4-1.3 m/s) MV E' lateral 0.067 (>0.1 m/s) E/A Ratio 0.6 MV E/E' LAT 8.54 (<14) MV E' Average 0.061 m/s MV E/E'(average) 9.35 Aortic Valve AoV Vmax 3.40 m/s LVOT Vmax 1.31 m/s AoV Peak Grad 51.0 mmHg LVOT Peak Grad 6.9 mmHg AoV Area (Vmax) 1.15 cm2 LVOT VTI 0.316 m AoV VTI 0.890 m LVOT Mean Grad 4.0 mmHg AoV Mean Blas. 2.65 m/s LVOT SV 94.11 mL AoV Mean Grad 30.5 mmHg LVOT Diam s 1.90 cm AoV Area (VTI) 1.06 cm2 AV Regurg Peak Gr. 55.90 mmHg Velocity Ratio 0.39 AR Decel [place] 1.1m/sec2 AR DT 3314 msec AR PHT 961 msec AR Vmax 3.74 m/s Mitral Valve MV DT 300 (160-240 msec) MV Vmax TIPS 0.82 m/s MV Mean Grad 0.7 (<2mmHg) MV VTI 0.336 m Pulmonary Valve PV Vmax 1.12 (0.5-1.5 m/s) RVOT Vmax 0.92 m/s PV Peak Grad 5.1 mmHg RVOT Peak Gr. 3.4 mmHg PV Mean Blas 0.77 m/s RVOT VTI 0.177 m PV Mean Grad 2.7 mmHg RVOT Mean Gr. 1.6 mmHg Tricuspid Valve TV S' 0.12 m/s
== END ==
PROVIDERS: PCP Family Medicine; Visit Provider Nurse Practitioner
DX: R06.09 Other forms of dyspnea (principal)
CPT/HCPCS: 36415; 80048; 93306

== ENCOUNTER 2024-01-01 14:40 | Outpatient (CLI) | payer MEDICARE, OTHER, SELFPAY ==
[2024-01-01 10:54] LABS: Anion Gap 11.3 mmol/L (3-11); BUN 26 mg/dL (7-18); CO2 23.7 mmol/L (21.0-32.0); CREATININE 1.9 mg/dL (0.70-1.30); Calcium 9.5 mg/dL (8.5-10.1); Chloride 102 mmol/L (98-107); Estimated GFR 34.35 (mL/min/1.73m2); Glucose 293 mg/dL (74-106); Potassium 5.2 mmol/L (3.5-5.1); Sodium 137 mmol/L (136-145)
== END 2024-01-01 14:41 | disposition home or self-care (01) ==
PROVIDERS: PCP Family Medicine; Visit Provider Family Medicine
DX: E87.5 Hyperkalemia (principal); I10 Essential (primary) hypertension; E11.9 Type 2 diabetes mellitus without complications
CPT/HCPCS: 36415; 80048; 93306

== ENCOUNTER 2024-01-11 03:10 | Outpatient (CLI) | payer MEDICARE, OTHER, SELFPAY ==
[2024-01-11 12:03] LABS: Anion Gap 11.8 mmol/L (3-11); BUN 24 mg/dL (7-18); CO2 25.2 mmol/L (21.0-32.0); CREATININE 1.7 mg/dL (0.70-1.30); Calcium 9.1 mg/dL (8.5-10.1); Chloride 105 mmol/L (98-107); Estimated GFR 39.26 (mL/min/1.73m2); Glucose 216 mg/dL (74-106); Potassium 5.3 mmol/L (3.5-5.1); Sodium 142 mmol/L (136-145)
== END 2024-01-11 03:11 | disposition home or self-care (01) ==
LOC: LBO 03:11
PROVIDERS: PCP Family Medicine; Referring Provider Family Medicine; Visit Provider Family Medicine
DX: E87.5 Hyperkalemia (principal)
CPT/HCPCS: 36415; 80048

== ENCOUNTER → 2024-07-23 09:34 | Outpatient (BNVA) | payer MEDICARE, OTHER, SELFPAY | PROVIDERS: PCP Family Medicine; Visit Provider Urology | DX: R39.12 Poor urinary stream (principal); N40.1 Benign prostatic hyperplasia with lower urinary tract symptoms | CPT/HCPCS: 99214 ==

== ENCOUNTER → 2024-08-13 10:17 | Outpatient (BNVA) | payer MEDICARE, OTHER, SELFPAY | PROVIDERS: PCP Family Medicine; Referring Provider Family Medicine; Visit Provider Surgery | DX: D48.5 Neoplasm of uncertain behavior of skin; I10 Essential (primary) hypertension | CPT/HCPCS: 99214 ==

== ENCOUNTER 2024-08-14 07:36 | Day surgery (SDC) | payer MEDICARE, OTHER, SELFPAY ==
--- NOTE | 2024-08-13 16:03 | PDOC.DSDIS_ITS ---
Date of service: 08/14/24 Time of Service: 10:05 Discharge Plan Disposition Patient Disposition: Home Condition: Good Discharge Details Reason For Visit: Excision and primary closure of right cheek lesion Attending Provider: Gustavo Kilgore Primary Care Provider: Fabián Dawn Home Meds and New Rx's Prescriptions: Continued tadalafil 5 mg tablet See Rx Instructions .ROUTE .COMPLEX Qty: 90 3RF Dose Instruction: TAKE 1 TABLET DAILY FOR URINATION Rx Instructions: TAKE 1 TABLET DAILY FOR URINATION amlodipine 5 mg tablet See Rx Instructions .ROUTE .COMPLEX Qty: 180 3RF Dose Instruction: TAKE 2 TABLETS DAILY Rx Instructions: TAKE 2 TABLETS DAILY atenolol 50 mg tablet 50 mg PO DAILY Qty: 90 3RF atorvastatin 40 mg tablet See Rx Instructions .ROUTE .COMPLEX Qty: 90 3RF Dose Instruction: TAKE 1 TABLET DAILY TO LOWER CARDIOVASCULAR RISK, LOWER CHOLESTEROL Rx Instructions: TAKE 1 TABLET DAILY TO LOWER CARDIOVASCULAR RISK, LOWER CHOLESTEROL lisinopril 40 mg tablet 40 mg PO DAILY Qty: 90 3RF metformin 1,000 mg tablet 1,000 mg PO BID Qty: 180 3RF aspirin [Aspir-81] 81 MG tablet,delayed release (DR/EC) 81 mg PO DAILY omeprazole magnesium [Prilosec OTC] 20 MG tablet,delayed release (DR/EC) 20 mg PO DAILY Qty: 90 Rx Instructions: for persistent reflux esophagitis PreserVision AREDS 1 EACH capsule 1 tab PO BID Discharge Instructions Additional Instructions: Fail, it was very nice seeing you and your today, and I hope you are comfortable during the procedure. Like we talked about, I excised that bit of tissue off of your right cheek, and closed up the site with some stitches. You have 1 stitch down deep underneath of your skin which will be absorbed over time, and 4 stitches at the skin level. There are little white Band-Aids in between the stitches called Steri-Strips. They are basically fancy Band-Aids. On top of all of that is a simple Band-Aid. As I mentioned, outermost Band-Aid is really more for your comfort as you are out and about. When you get home, you should feel free to remove this. So long as you are not self-conscious about the stitches and Steri-Strips, you do not technically need a Band-Aid on top. If you prefer skin toned Band-Aid to try less attention, that is absolutely fine as well. At the very least, you should remove outermost Band- Aid later today, and gently wash the incision with some warm soapy water before going to sleep. Repeat this every day. If the little white Steri-Strips start to peel off, you can remove them, but I suspect they will probably stay in place until we see you in the office. If the incision site starts to get itchy, you are welcome to add any type of ointment on top to help relieve the itching. Neosporin or vitamin A&E ointment tend to work pretty well for this. If the incision does not bother you, then you do not need to put anything special on it at all. If the site starts to get sore, a little cold pack, or a bag of frozen peas might be comfortable. Tylenol and ibuprofen will also be useful if needed. We have scheduled a follow-up appointment in the office on the at 1:30 PM. If you have any difficulty making this appointment, please let the office know, we will try to find a better time for you. If you need anything at all in the meantime, please do not hesitate to ask. Activity:: Activity as Tolerated Diet:: As Tolerated Discharge Orders Discharge Orders: Discharge Order (Routine); Ordered 08/13/24 Ordered By: Gustavo Kilgore DS: Diagnosis Discharge Diagnosis (1) Basal cell carcinoma: Status: Acute Asessment and Plan: Follow-up on biopsy results; outpatient office follow-up next week for suture removal
--- NOTE | 2024-08-13 16:05 | ROE_ITS ---
Date of service: 08/14/24 Time of Service: 10:11 Operative Note Operative Note DATE OF PROCEDURE: 08/14/24 PRE-OP DIAGNOSIS: Right cheek skin lesion POST-OP DIAGNOSIS: same PROCEDURE: Excision and primary closure of right cheek skin lesion SURGEON: Gustavo Kilgore ANESTHESIA TYPE: Local By Surgeon Refer to Anesthesia Record ESTIMATED BLOOD LOSS: 5 PATHOLOGY: other (Right cheek skin lesion) COMPLICATIONS: None Patient was transported to: same day Patient's condition: stable Indications: Shaji is an 83-year-old male with a growing lesion on the right cheek. Clinical features are consistent with a basal cell carcinoma. Findings: Excision and primary closure of right cheek lesion approximately 1.75 cm long by 0.5 cm wide Procedure Description: Shaji was brought back to the procedure room, and assisted to a semirecumbent position. He was supported appropriate with pillow. Head was turned towards his left side, and I prepped and draped his cheek. I established a generous field block using local anesthetic with epinephrine. Next, I performed semielliptical incisions on each side of the lesion. This was done sharply, and continued down into the subcutaneous soft tissues. Great care was taken to ensure full-thickness skin specimen. Length of the excision site was approximately 1.75 centimeters long by about 0.5 cm wide. Narrow margins were close to the base of the lesion and in order to preserve an appropriate cosmetic closure. However care was also taken to incorporate some normal-appearing skin on the edges in an effort to maintain negative margins. Once the specimen was completely excised it was passed off the field. Will be sent to pathology without orientation. Some gentle pressure was held on the wound, which appeared hemostatic. The deep layer was closed with an interrupted 3-0 Vicryl suture, and the skin was reapproximated with interrupted 5-0 nylon stitches. Steri- Strips were placed in between the sutures. A Band-Aid was placed over top. Shaji tolerated the procedure just fine, was discharged afterwards.
[2024-08-14 08:02] VITALS: BP 142/66; PULSE 54; RESP 18; TEMP 36.1; O2SAT 96
[2024-08-14] MEDS: Bupivacaine 0.5% Pres-Free W/EPI 30 ML VIAL (09:31)
--- NOTE | 2024-08-14 09:37 | SKI_PTH ---
PATIENT: Raza Ngo LOC: [facility] U#:[id number] AGE/SX: 83/M ROOM: RE08/14/[address]: Gustavo Kilgore MD : [id number] BED: DIS: 08/14/2024 SPEC #: [id number] RECD: 08/14/24 13:03 STATUS: JEANNETTE REQ #: [id number] KAYLEEN: 08/14/24 09:[address]: Gustavo Kilgore DEPT: Surgical Specimen RECD BY: Elaine Xie ENTERED: 08/14/24 13:03 SP TYPE: TYLER OTHR DR: Fabián Dawn DO Tissues: 1 - SKIN BIOPSY(SHAVE/PUNCH) Procedures: SKIN LEVEL 4 Comments: [id number]
[2024-08-14 09:56] VITALS: BP 139/75; PULSE 53; RESP 18; TEMP 36.2; O2SAT 95
== END 2024-08-14 10:16 | disposition home or self-care (01) ==
LOC: SUR 07:37
PROVIDERS: PCP Family Medicine; Visit Provider Surgery
PROC: 0HB1XZZ Excision of Face Skin, External Approach (ICD-10-PCS; CPT 11642; principal; 2024-08-14 10:45)
DX: C44.329 Squamous cell carcinoma of skin of other parts of face (principal)
CPT/HCPCS: 11642; 88305

== ENCOUNTER 2025-01-29 07:26 | Emergency (ER) | payer MEDICARE, OTHER, SELFPAY ==
[2025-01-29 07:29] VITALS: BP 199/74; PULSE 65; RESP 20; O2SAT 98
--- NOTE | 2025-01-29 07:31 | W.ED.GENAD ---
Discharge Plan Disposition Patient Disposition: Home Discharge Details Clinical Impression: Right-sided epistaxis Primary Care Provider: Fabián Dawn ED Provider: Tommy Barksdale Home Meds and New Rx's Prescriptions: Continued tadalafil 5 mg tablet See Rx Instructions .ROUTE .COMPLEX Qty: 90 3RF Dose Instruction: TAKE 1 TABLET DAILY FOR URINATION Rx Instructions: TAKE 1 TABLET DAILY FOR URINATION amlodipine 5 mg tablet See Rx Instructions .ROUTE .COMPLEX Qty: 180 3RF Dose Instruction: TAKE 2 TABLETS DAILY Rx Instructions: TAKE 2 TABLETS DAILY atenolol 50 mg tablet 50 mg PO DAILY Qty: 90 3RF atorvastatin 40 mg tablet See Rx Instructions .ROUTE .COMPLEX Qty: 90 3RF Dose Instruction: TAKE 1 TABLET DAILY TO LOWER CARDIOVASCULAR RISK, LOWER CHOLESTEROL Rx Instructions: TAKE 1 TABLET DAILY TO LOWER CARDIOVASCULAR RISK, LOWER CHOLESTEROL lisinopril 40 mg tablet 40 mg PO DAILY Qty: 90 3RF metformin 1,000 mg tablet 1,000 mg PO BID Qty: 180 3RF aspirin [Aspir-81] 81 MG tablet,delayed release (DR/EC) 81 mg PO DAILY omeprazole magnesium [Prilosec OTC] 20 MG tablet,delayed release (DR/EC) 20 mg PO DAILY Qty: 90 Rx Instructions: for persistent reflux esophagitis PreserVision AREDS 1 EACH capsule 1 tab PO BID Discharge Instructions Instructions: Humidifiers, Nosebleeds ED Additional Instructions: You are seen in emergency department for your nosebleed. We gave you your home blood pressure medications this morning: Amlodipine, atenolol, and lisinopril. As we discussed if you develop recurrent nosebleeding please use this spray 3 times in your nose and use the clamp. Please sit down for 20 minutes. Afterwards please take the clamp off. If your bleeding recurs please use the spray 3 more times apply the clamp and return to the emergency department. HPI General Date/Time Provider Initiated Documentation: 01/29/25 07:31. HPI Narrative: MDM This is an overall quite well-appearing afebrile and not tachycardic but hypertensive diabetic male in the emergency department setting of right-sided epistaxis which is hemostatic at the moment. No trauma to the nose to suggest benefit from CT scan with patient has no septal hematoma. No obvious masses to suggest malignancy. Based on age and not suspicious for hemophilia or coagulopathy. Will monitor in the ED following nasal clamp and use oxymetazoline. 4:15 PM Late charting due to patient care. Patient was observed in the ED. He was discharged with oxymetazoline. He understood his use of this medication and his clamp. He will return if he needs to spray oxymetazoline more than once or if he begins bleeding to the cramp. Otherwise he will follow-up as needed with his PCP. HPI This is a 84-year-old male with history of hyperlipidemia elevated BMI arrived emergency department via private vehicle in setting of right-sided epistaxis. Patient reports his symptoms began 3 days ago. He was able to control the bleeding at home. This morning at 5 AM bleeding recurred. He reported remote history of nasal fracture and realignment. He has no prior history of epistaxis. He is not anticoagulated but he does take 81 mg of aspirin every day. He denies shortness of breath chest pain nausea or vomiting. Exam General: Well-appearing in no acute distress speaking in complete sentences. Head: Normocephalic, atraumatic. Eye: Extraocular eye movements intact. No conjunctival injection. No scleral icterus. Ear, nose, mouth, throat: Mild right-sided epistaxis. Normal voice, handling secretions normally. No posterior oropharynx bleeding. Neck: Trachea midline. Cardiovascular: Well-perfused distal extremities. Respiratory: Nonlabored respiration. Gastrointestinal: Nondistended abdomen. Musculoskeletal: No edema. Moving all 4 extremities spontaneously. Skin: Normal for age and race, grossly normal temperature and turgor. No acute rash. Neurologic: Alert and appropriate, no apparent acute deficits. Psychiatric: Mood and manner are appropriate. Grooming and personal hygiene are appropriate. Related Data Home Medications ?Medication ?Instructions ?Recorded ?Confirmed aspirin 81 mg tablet,delayed 81 mg PO DAILY 02/14/13 01/29/25 release (Aspir-) vitamins A,C,E-dryd-ewqxbt 4,296 1 tab PO BID 12/15/16 01/29/25 mcg-226 mg-90 mg capsule (PreserVision AREDS) omeprazole magnesium 20 mg 20 mg PO DAILY #90 caps 07/04/17 01/29/25 tablet,delayed release (Prilosec OTC) amlodipine 5 mg tablet See Rx Instructions .Route 04/12/24 01/29/25 .COMPLEX #180 tabs atenolol 50 mg tablet 50 mg PO DAILY #90 tabs 04/12/24 01/29/25 atorvastatin 40 mg tablet See Rx Instructions .Route 04/12/24 01/29/25 .COMPLEX #90 tabs lisinopril 40 mg tablet 40 mg PO DAILY #90 tabs 04/12/24 01/29/25 metformin 1,000 mg tablet 1,000 mg PO BID #180 tabs 04/12/24 01/29/25 tadalafil 5 mg tablet See Rx Instructions .Route 07/23/24 01/29/25 .COMPLEX #90 tabs Previous Rx's ?Medication ?Instructions ?Recorded amlodipine 5 mg tablet See Rx Instructions .Route 04/12/24 .COMPLEX #180 tabs atenolol 50 mg tablet 50 mg PO DAILY #90 tabs 04/12/24 atorvastatin 40 mg tablet See Rx Instructions .Route 04/12/24 .COMPLEX #90 tabs lisinopril 40 mg tablet 40 mg PO DAILY #90 tabs 04/12/24 metformin 1,000 mg tablet 1,000 mg PO BID #180 tabs 04/12/24 tadalafil 5 mg tablet See Rx Instructions .Route 07/23/24 .COMPLEX #90 tabs Allergies Allergy/AdvReac Type Severity Reaction Status Date / Time tamsulosin AdvReac Intermediate Dizziness Verified 01/29/25 07:31 hydrochlorothiazide AdvReac Mild intolerable Verified 01/29/25 07:31 polyurea General Stated Complaint: Epistaxis PELON: 4 Course Vital Signs Vital signs: Vital Signs Pulse 65 01/29/25 07:29 Respiratory Rate 20 01/29/25 07:29 Blood Pressure 199/74 H 01/29/25 07:29 Pulse Oximetry 98 01/29/25 07:29 Pulse 65 01/29/25 07:29 Respiratory Rate 20 01/29/25 07:29 Blood Pressure 199/74 H 01/29/25 07:29 Blood Pressure Position Sitting 01/29/25 07:29 Pulse Oximetry 98 01/29/25 07:29 Oxygen Delivery Method Room Air 01/29/25 07:29 Oxygen Flow Rate 0 01/29/25 07:29 Procedure Epistaxis Control Date of Procedure: 01/29/25 Time of Procedure: 08:30 Provider that performed the procedure: Tommy Barksdale Patient Consented: Verbally Nostril: right Nose prepped with: oxymetazoline Direct Inspection: yes Clots Removed by: blowing nose Cautery Used: none Procedure Description/Note: Nasal clamp applied for 20 minutes. No recurrent bleeding. Observed for another 20 minutes no recurrent bleeding. Medical Decision Making Quality:SDOH Health Related Social Needs: No Data to Display PFSH All Active Problems (Updated 01/29/25 @ 07:58 by Tommy Barksdale MD) Right-sided epistaxis (Acute) Squamous cell carcinoma of cheek (Acute) Asymmetrical sensorineural hearing loss (Acute) Impacted cerumen, right ear (Acute) Contrast-induced nephropathy (Acute) Impacted cerumen, bilateral (Acute) Hyperkalemia (Acute) Pararenal abdominal aortic aneurysm (AAA) without rupture (Acute) 01/03/2023 - 5.4 cm (needs to meet threshold of 5.5 cm before action can be taken) Will repeat CT in 6 months - Dr Jun Wright 12/27/2023 - Now at 5.7 cm, proceeding with PMEG FEVAR Renal mass, left (Acute 01/20/22) Elevated blood pressure reading (Acute) Asymmetrical hearing loss of both ears (Chronic) note: 10/15/20 not interested in hearing test per Dr. Barahona Conductive hearing loss in right ear (Acute) Chronic serous otitis media, right ear (Acute) Dr Barahona. 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) Sensorineural hearing loss, bilateral (Chronic 07/09/15) Peripheral vascular disease (Chronic) s/p bilateral carotid endarterectomies ~2002 Obesity, unspecified (Chronic 02/08/12) Hypoaldosteronism (Chronic 11/04/16) ttendency to hyperkalemia: no salt substitutes Hyperlipidemia (Chronic 02/08/12) Heart murmur, systolic (Chronic 05/31/16) mild /AR on ECHO 06/06/16, EF 60% BPH w/o urinary obs/LUTS (Chronic) bx neg 05/2010 Gastroesophageal reflux disease (Chronic 02/08/12) Essential hypertension (Chronic 01/31/00) h/o hctz, lisinopril; d/c hctz 11/2013; d/c lisinopril 12/2013, resume lisinopril 06/2014 Elevated PSA (Chronic 06/20/16) Diabetes mellitus (Chronic 04/29/02) DX 2001 MULTIPLE FBS>126; ONE PP 276 IN 12/2005; A1C 7.0 IN 2002; CONTROL DIET, METFORMIN, EXERCISE Alkaline phosphatase raised (Chronic 02/08/12) bone (normal GGT repeatedly) Medical History Abdominal aortic aneurysm (AAA) without rupture (04/29/16) Abdominal US: 5cm AAA above bifurcation; 4.8 x 4.2 by CTA [facility] [place] Dr Morales Wright, f/u 09/2016 [facility] [place]; Bruit 04/17/19 5.1 cm , 10/21/19 5.4 cm, repeat 6 mos. 06/22/20 AAA=5.6 cm Surgical History Hx of excision of mass (~07/2024) Area on R facial cheek Status post aortic coarctation stent placement 5 stents, per pt H/O carotid endarterectomy H/O bilateral cataract extraction Hx of colonoscopy cataract extraction (07/21/15) intraocular lens implant right Dr Ortiz; also Left cataract extraction (07/07/15) intraocular lens implant right Dr Ortiz; also Left Prostate Biopsy (06/08/10) [facility] for elevated PSA, neg Extraction of cataract Family History Mother , old age at age 95. No problems noted. Father , liver problems at age 68. Liver disease Brother , brain aneurysm at age 64. No problems noted. Brother Age: 90 Neoplasm Social History Smoking/Tobacco Use Status: Former Tobacco Use Quit Date: 08/30/83 Tobacco: How many years used: 30 Smoking risk assessment performed?: Yes Alcohol Intake: current Alcohol Intake frequency: a few times a week Alcohol type: hard liquor Drug use: Never Substance use type: does not use Details: alcohol: t-5 Adopted: No Caregiver/Support person: No Household members: significant other Housing: house Number of Children: 2 Communication Needs: Hard of Hearing and Corrective Lenses Education Level: high school Do you need help understanding health information?: Never Pets and animals: Yes Pets and animals: dog(s) Do you think of yourself as: straight/heterosexual Current gender identity: male What is your relationship status?: living with partner Do you belong to any clubs or organized social groups?: yes Panel score (0-1 are the most socially isolated patients): 2 What type of physical activity do you participate in: other Details: physically active daily/woodpile Duration: 60-90 minutes/day Frequency: daily Amber/Hinduism: Anabaptist Special amber needs: No Seatbelt use: always Drive 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
[2025-01-29 08:08] VITALS: TEMP 36
[2025-01-29] MEDS: Oxymetazolone 0.05% SPRAY 15 ML BTL NS (08:16)
[2025-01-29] MEDS: Atenolol 25 MG TAB 50 MG PO (08:52)
[2025-01-29] MEDS: amLODIPine 5 MG TAB PO (08:52)
[2025-01-29] MEDS: Lisinopril 10 MG TAB 40 MG PO (08:52)
[2025-01-29 08:53] VITALS: BP 192/70; PULSE 57; RESP 16; O2SAT 97
[2025-01-29 09:34] VITALS: BP 197/80; PULSE 60; RESP 18; O2SAT 98
== END 2025-01-29 09:34 | disposition home or self-care (01) ==
PROVIDERS: Emergency Provider Emergency Medicine; PCP Family Medicine
DX: R04.0 Epistaxis (principal); E11.9 Type 2 diabetes mellitus without complications; I10 Essential (primary) hypertension; Z79.82 Long term (current) use of aspirin; Z79.84 Long term (current) use of oral hypoglycemic drugs; Z87.891 Personal history of nicotine dependence
CPT/HCPCS: 36415; 96361; 96374; 99283; 99285

== ENCOUNTER 2025-05-09 00:58 | Outpatient (CLI) | payer MEDICARE, OTHER, SELFPAY ==
[2025-05-09 10:01] LABS: Hemoglobin A1C 7.3 % (<5.7)
[2025-05-09 10:58] LABS: ALT 19 U/L (16-63); AST 16 U/L (15-37); Albumin 3.4 g/dL (3.4-5.0); Alkaline Phosphatase 201 U/L (46-116); Anion Gap 8.8 mmol/L (3-11); BUN 19 mg/dL (7-18); Bilirubin, Total 0.5 mg/dL (0.2-1.0); CO2 25.2 mmol/L (21.0-32.0); Calcium 8.9 mg/dL (8.5-10.1); Chloride 103 mmol/L (98-107); Estimated GFR 45.34 (mL/min/1.73m2); Glucose 312 mg/dL (74-106); Potassium 5.7 mmol/L (3.5-5.1); Sodium 137 mmol/L (136-145); Total Protein 7.0 g/dL (6.4-8.2)
== END 2025-05-09 00:59 | disposition home or self-care (01) ==
LOC: LBO 00:58
PROVIDERS: PCP Family Medicine; Referring Provider Family Medicine; Visit Provider Family Medicine
DX: E11.9 Type 2 diabetes mellitus without complications (principal); I10 Essential (primary) hypertension
CPT/HCPCS: 36415; 80053; 83036

== ENCOUNTER 2025-05-27 13:52 | Outpatient (CLI) | payer MEDICARE, OTHER, SELFPAY ==
--- NOTE | 2025-05-27 13:00 | DI.RAD_ITS ---
Exam(s) XR KNEE LT 4V AP,LAT,JULIA,PAT XR KNEE RT 4V AP,LAT,JULIA,PAT EXAM: XR KNEE RT 4V AP,LAT,JULIA,PAT CLINICAL HISTORY: BILATERAL KNEE PAIN. TECHNIQUE: 2D digital imaging was performed. Four views both knee. COMPARISON: MR MRI R LOWER JOINT WO CONT from 11/07/2016 CR XR KNEE LT 4V AP,LAT,JULIA,PAT from 05/27/2025 FINDINGS: BONES: No acute fracture is present. No bony destructive lesion is seen. JOINTS: The knee is normally aligned. No joint effusion is seen. There is mild periarticular spurring. There is mild narrowing of both medial femoral tibial joint spaces. The patellofemoral joint spaces are maintained. SOFT TISSUE: Vascular calcifications. IMPRESSION: Mild degenerative changes. DATA REPOSITORY: RADIATION DOSE DELIVERED:
== END 2025-05-27 13:53 | disposition home or self-care (01) ==
LOC: DIORS 13:53
PROVIDERS: PCP Family Medicine; Referring Provider Family Medicine; Visit Provider Physician Assistant
DX: M25.561 Pain in right knee (principal); M25.562 Pain in left knee; M17.0 Bilateral primary osteoarthritis of knee; R53.1 Weakness; I10 Essential (primary) hypertension; E11.9 Type 2 diabetes mellitus without complications
CPT/HCPCS: 99213; 20610; J1010; 73564

== ENCOUNTER 2025-06-11 10:00 | Outpatient (REF) | payer MEDICARE, OTHER, SELFPAY ==
--- NOTE | 2025-06-11 10:55 | SKI_PTH ---
PATIENT: Raza Ngo LOC: [facility]#:[id number] AGE/SX: 84/M ROOM: RE06/11/[address]: ARCADIO Kelly : 1940 BED: DIS: 06/11/2025 SPEC #: [id number] RECD: 06/11/25 13:01 STATUS: JEANNETTE HOGAN #: [id number] KAYLEEN: 06/11/25 10:[address]: Noni Barnes DEPT: Surgical Specimen RECD BY: Elaine Xie ENTERED: 06/11/25 13:02 SP TYPE: TYLER VILLEDA DR: Fabián Dawn DO Tissues: 1 - SKIN BIOPSY(SHAVE/PUNCH) 2 - SKIN BIOPSY(SHAVE/PUNCH) Procedures: SKIN LEVEL 4 Comments: [id number]
== END 2025-06-11 10:01 | disposition home or self-care (01) ==
LOC: SUO 10:00
PROVIDERS: PCP Family Medicine; Referring Provider Family Medicine; Visit Provider Physical Therapy Assistant
DX: C44.619 Basal cell carcinoma of skin of left upper limb, including shoulder (principal); L85.8 Other specified epidermal thickening
CPT/HCPCS: 11621; 11400; 88305

== ENCOUNTER → 2025-06-18 10:49 | Outpatient (BNVA) | payer MEDICARE, OTHER, SELFPAY | PROVIDERS: PCP Family Medicine; Referring Provider Family Medicine; Visit Provider Physical Therapy Assistant | DX: Z48.02 Encounter for removal of sutures (principal) | CPT/HCPCS: 99024 ==

== ENCOUNTER 2025-06-25 05:05 | Inpatient (IN) | payer MEDICARE, OTHER, SELFPAY ==
[2025-06-25] VITALS (47 sets, daily range): BP systolic 124–196; BP diastolic 41–72; PULSE 48–69; RESP 14–30; TEMP 36–37.3; O2SAT 87–99
--- NOTE | 2025-06-25 05:00 | RT.EKG_ITS ---
APPROVED REPORT Exam: Resting ECG Reason for Exam: chest pain Patient Location: E HR:63 bpm ECG Measurements Heart Rate 63 AXIS ND 167 P 21 QRSd 87 QRS 6 QT 393 T 11 QTc 404 Conclusion Sinus rhythm...normal P axis, V-rate 60- [address] segment or T wave abnormalities to suggest occlusive MS
--- NOTE | 2025-06-25 05:00 | DI.CT_ITS ---
Exam(s) CT THORAX ABD/PEL CTA EXAM: CT THORAX ABD/PEL CTA CLINICAL HISTORY: eval for aortic dissection. TECHNIQUE: Imaging Protocol: Axial CT angiography was performed with multi- slice acquisition and multi-planar and/or 3D reconstructions. Lung Computer Aided Detection (CAD) was utilized. CONTRAST MATERIAL: Intravenous: Omnipaque 350 contrast volume:100 mL Oral: No COMPARISON: CT CT ANGIOGRAM ABDOMEN AND PELVIS W CONTRAST (GENERIC) from 01/20/[address] ABDOMEN WO/W from 05/25/2023 FINDINGS: The examination is limited due to patient motion artifact. CHEST: Tracheobronchial tree: Patent where visualized. There is no evidence of bronchiectasis. Pulmonary parenchyma: There is atelectasis in the right lower lobe. No architectural distortion. Pulmonary Arteries: There is an abrupt loss opacification of the segmental branch of the pulmonary artery to the lingula (series 15, image 66). The findings are suspicious for a pulmonary embolism. Mediastinum and Rose: Non-specific mildly enlarged lymph nodes are seen in the mediastinum. There is a small hiatal hernia. The esophagus is unremarkable. Visualized thyroid: There is a 7 mm homogeneous hypodense nodule in the right thyroid gland. No follow-up is recommended. Pleura: There is a small right pleural effusion. No left pleural effusion. No pneumothorax. Heart: The heart is not dilated. No coronary artery calcifications are seen. No pericardial effusion.There is no evidence of right heart strain. Aorta: Thoracic aorta non-dilated. There is no evidence of dissection. Atherosclerotic calcification is present. Soft Tissues: Unremarkable. Bones: Within normal limits for the patient's age. ABDOMEN AND PELVIS: Abdomen: Celiac axis/mesenteric arteries: No evidence of occlusion or significant stenosis. Renal Arteries: No evidence of occlusion or significant stenosis. Aorta: There is an infrarenal aneurysm in the yuhaaviatam abdominal aorta measuring 5.5 x 5.5 cm. There has been interval placement of an endovascular stent. Arms of this stent extend into the celiac axis, superior mesenteric artery and both renal arteries. No evidence of hemorrhage is seen. Atherosclerotic calcification is present. Pelvis: Iliac Arteries: No evidence of occlusion or significant stenosis. Atherosclerotic calcification of the iliac arteries is seen bilaterally with less than 50 percent stenosis. Common Femoral Arteries: No evidence of occlusion or significant stenosis. Atherosclerotic calcification is seen in the femoral arteries bilaterally with approximately 50 percent stenosis on the right. ABDOMEN: Liver: Normal density. No measurable mass. Portal, superior mesenteric and splenic veins: Unremarkable. Gallbladder and Biliary Tract: No radiodense calculus or dilation. Pancreas: Normal density, no abnormal calcifications or inflammatory process. Spleen: Normal. Adrenals: No masses seen. Kidneys: Normal size, contour and axis. No radiodense stones or obstructive uropathy. There are bilateral simple renal cysts. No follow-up is recommended. Bowel: There is diverticulosis of the colon without evidence of acute diverticulitis. The stomach is incompletely distended limiting evaluation. There may be a small hiatal hernia. There is no evidence of bowel obstruction or bowel wall thickening. There is a duodenal diverticulum present. There is a normal retrocecal appendix. Peritoneal Cavity: No ascites, collection or mesenteric inflammatory response. No free air. Lymph Nodes: Within normal limits. Bones: Within normal limits for the patient's age. Soft Tissues: Unremarkable. PELVIS: Bladder: Symmetric distention, no gross wall thickening. Reproductive Organs: There is again seen an enlarged and heterogeneous prostate gland. It measures 7.7 cm transverse by 9.2 cm AP x 8.8 cm craniocaudad. It is shown some interval increase in size compared to the examination from 01/20/2022. Lymph Nodes: Within normal limits. Bones: Within normal limits for the patient's age. IMPRESSION: 1. Endovascular stent within the infrarenal abdominal aortic aneurysm. There is no evidence of a leak. 2. Colonic diverticulosis without evidence of acute diverticulitis. 3. Markedly enlarged heterogeneous prostate gland is again seen a has shown slight interval increase in size compared to the prior examination. 4. No acute abdominal or pelvic process. 5. Filling defect in a branch of the pulmonary arteries to the lingula suspicious for a pulmonary embolism. There is no evidence of right heart failure. 6. Small right pleural effusion and right basilar atelectasis. 7. The preliminary [facility] report was reviewed. RADIATION DOSE DELIVERED: 892.91mGy.cm Total DLP DATA REPOSITORY: All CT scans at this facility are submitted to the National Radiology Data Registry (NRDR) Dose Index Registry (DIR) with the [employer] (ACR). RADIATION OPTIMIZATION: All CT scans at this facility use at least one of these dose optimization techniques: automated exposure control; mA and/or kV adjustment per patient size (includes targeted exams where dose is matched to clinical indication); or iterative reconstruction.
--- NOTE | 2025-06-25 05:19 | ED.GENADUL_ITS ---
Discharge Plan Disposition Patient Disposition: Admit to [facility] Discharge Details Clinical Impression: Pulmonary embolism, Hypomagnesemia, Acute hypoxemic respiratory failure, Chronic hyperkalemia Primary Care Provider: Fabián Dawn ED Provider: Alfreda Cedeno Home Meds and New Rx's Prescriptions: No Action tadalafil 5 mg tablet See Rx Instructions .ROUTE .COMPLEX Qty: 90 3RF Dose Instruction: TAKE 1 TABLET DAILY FOR URINATION Rx Instructions: TAKE 1 TABLET DAILY FOR URINATION aspirin [Aspir-81] 81 MG tablet,delayed release (DR/EC) 81 mg PO DAILY omeprazole magnesium [Prilosec OTC] 20 MG tablet,delayed release (DR/EC) 20 mg PO DAILY Qty: 90 Rx Instructions: for persistent reflux esophagitis amlodipine 5 mg tablet See Rx Instructions .ROUTE .COMPLEX Qty: 180 3RF Dose Instruction: TAKE 2 TABLETS DAILY Rx Instructions: TAKE 2 TABLETS DAILY lisinopril 40 mg tablet 40 mg PO DAILY Qty: 90 3RF metformin 1,000 mg tablet 1,000 mg PO BID Qty: 180 3RF atenolol 50 mg tablet 50 mg PO DAILY Qty: 90 3RF atorvastatin 40 mg tablet See Rx Instructions .ROUTE .COMPLEX Qty: 90 3RF Dose Instruction: TAKE 1 TABLET DAILY TO LOWER CARDIOVASCULAR RISK, LOWER CHOLESTEROL Rx Instructions: TAKE 1 TABLET DAILY TO LOWER CARDIOVASCULAR RISK, LOWER CHOLESTEROL PreserVision AREDS 1 EACH capsule 1 tab PO BID HPI General Mode of arrival: ambulatory . Date/Time Provider Initiated Documentation: 06/25/25 05:05 . Limitations to Documentation: no limitations . Information obtained by: patient, family and old records reviewed . HPI Narrative: 84yo male with AAA, HTN, HLD, GERD, BPH, DM, presenting with severe right sided abdominal/rib pain since around midnight. Pain is sharp, throbbing, constant since onset, and is coming in waves. No chest pain, back pain, shortness of breath, lightheadeness, nausea, vomiting, or diarrhea. [place] normal yesterday. Had surgery over a year ago at [facility] for his AAA, states he has '4 stents' in p lace. Has an appt at [facility] for a checkup on his AAA scheduled for later today. Medical records reviewed; had 4 vessel FEVAR on 02/23/24 . Related Data Home Medications ?Medication ?Instructions ?Recorded ?Confirmed aspirin 81 mg tablet,delayed 81 mg PO DAILY 02/14/13 0 06/25/25 release (Aspir-) vitamins A,C,F-irdy-nvakpc 4,296 1 tab PO BID 12/15/16 06/25/25 mcg-226 mg-90 mg capsule (PreserVision AREDS) omeprazole magnesium 20 mg 20 mg PO DAILY #90 caps 03/1506/25/25 tablet,delayed release (Prilosec OTC) tadalafil 5 mg tablet See Rx Instructions .Route 0 07/23/24 06/25/25 .COMPLEX #90 tabs amlodipine 5 mg tablet See Rx Instructions .Route 0 02/14/25 06/25/25 .COMPLEX #180 tabs atenolol 50 mg tablet 50 mg PO DAILY #90 tabs 01/2806/25/25 lisinopril 40 mg tablet 40 mg PO DAILY #90 tabs 01/2806/25/25 metformin 1,000 mg tablet 1,000 mg PO BID #180 tabs 06/25/25 atorvastatin 40 mg tablet See Rx Instructions .Route 0 03/27/25 06/25/25 .COMPLEX #90 tabs Previous Rx's ?Medication ?Instructions ?Recorded tadalafil 5 mg tablet See Rx Instructions .Route 0 07/23/24 .COMPLEX #90 tabs amlodipine 5 mg tablet See Rx Instructions .Route 0 02/14/25 .COMPLEX #180 tabs atenolol 50 mg tablet 50 mg PO DAILY #90 tabs 01/28 06/23 lisinopril 40 mg tablet 40 mg PO DAILY #90 tabs 01/28 06/23 metformin 1,000 mg tablet 1,000 mg PO BID #180 tabs atorvastatin 40 mg tablet See Rx Instructions .Route 0 03/27/25 .COMPLEX #90 tabs Allergies Allergy/AdvReac Type Severity Reaction Status Date / Time tamsulosin AdvReac Intermediate Dizziness Verified 06/25/25 05:14 hydrochlorothiazide AdvReac Mild intolerable Verified 06/25/25 05:14 polyurea General Stated Complaint: Abd Prob PELON: 3 Review of Systems Narrative: see HPI Exam Narrative Exam Narrative: General: Alert, well appearing, well nourished, in no acute distress. Head: Normocephalic, atraumatic Neck: Trachea midline, ?Neck supple. Cardiac: ?RRR, no murmurs appreciated Resp: No respiratory distress. CTAB. Abd: ?Soft, non-distended, moderate tenderness to palpation diffusely on right side of abdomen. No rebound or guarding. Negative ricardo's. : ?No suprapubic tenderness. No CVA tenderness. Extremities: ?No deformities.? No peripheral edema. Neurologic: GCS 15. ? Moves all extremities freely against gravity Course Vital Signs Vital signs: Vital Signs Temperature 37.3 C 06/25/25 05:08 Pulse 66 06/25/25 05:08 Respiratory Rate 20 06/25/25 05:08 Blood Pressure 174/53 H 06/25/25 05:08 Pulse Oximetry 95 06/25/25 05:08 Temperature 37.3 C 06/25/25 05:08 Temperature Source Temporal Artery Scan 06/25/25 05:08 Pulse 66 06/25/25 05:08 Respiratory Rate 20 06/25/25 05:08 Blood Pressure 174/53 H 06/25/25 05:08 Pulse Oximetry 95 06/25/25 05:08 Oxygen Delivery Method Room Air 06/25/25 05:08 Oxygen Flow Rate 0 06/25/25 05:08 Pain Level 7 06/25/25 05:08 Medical Decision Making 84yo male with AAA, HTN, HLD, GERD, BPH, DM, presenting with severe right sided abdominal/rib pain since around midnight. Medical records reviewed; had 4 vessel FEVAR on 02/23/24. Hypertensive on arrival 174/52, vital signs otherwise reassuring. Well appearing on exam, does not appear acutely distressed, moderate right sided abdominal tenderness. Regardless of this, history is concerning for aortic pathology/leak/rupture; plan for emergent CTA. Will give tyelnol, morphine for pain, zofran for nasuea ppx. EKG NSR, appropriate intervals, no ST segment or T wave abnormalities to suggest occlusive SC. Differential also includes other acute pathology in chest and abdomen; acute coronary syndromes, gallbladder pathology, bowel obstruction, appendicitis, etc. -CTA independently reviewed; no aortic dissection or ruptures aneurysm on my view. -Labs reviewed as below, CBC with no leukocytosis and mild anemia at 12.7, CMP with Cr 1.4 (baseline on [facility] record review) and hyperkalemia at 5.2 (appears chronic on [facility] record review), Mg quite low at 1.0 (IV replacement ordered), lipase not suggestive of pancreatitis, coags normal, BNP somewhat elevated at 496, initial troponin 6. UA not infected and not suggestive of nephrolithiasis. -Given chronic nature of his borderline hyperkalemia, EKG overall reassuring (perhaps ever so slightly peaked T waves), and hypomag currently would not give IV lasix and would not kayexalte until patient is more differentiated and it is clear he will be able tolerate. No indication at this time to emergently shift with insulin/albuterol. On reassessment pt requiring 3LNC to maintain sat >95%; drops to 88-90% on room air. Episode of slow aflutter observed on the monitor, spontaneously converted back to sinus before repeat EKG could capture. Discussed CT with reading radiologist Dr. Lugo; pt with bilateral segmental pulmonary emboli, no acute aortic findings. Would certainly explain pt's hypoxia and right sided pain which is pleuritic is nature. Will give heparin bolus and start gtt. Given his medical history and elevated BNP suggestive of submassive PE (though no other evidence of right heart stain on labs/CT/EKG) would be well served by transfer to tertiary care facility. Repeat troponin stable. [facility] transfer center contacted; awaiting cardiology callback. Discussed with [facility] electronics repair technician Dr. Malcolm; agree with current plan of care, heparin gtt, advised echo and DVT study when available during the day. Intermediate risk PE, no emergent interventions indicated. Accepted to [facility] under Dr. Edwards, listing for later today. Discussed with [facility] hospitalist Dr. Leyva; pt accepted to medicine service. Awaiting admission orders and transfer to the floor. IMPRESSION: 1. Postsurgical changes in the bowel, without evidence of volvulus or obstruction. Left lower quadrant mesenteric swirling seen previously is no longer identified; see comments above. 2. Findings suspicious for cystitis. Correlate with urinalysis. Gas within the urinary bladder could be due to manipulation of the suprapubic catheter, though a gas-forming cystitis not excluded. 3. Additional stable chronic and incidental findings are discussed in the body of the report. Lab Data Lab results reviewed: Yes I reviewed the patient's lab results. Labs: Laboratory Tests Range/Units 06/25/25 06/25/25 06/25/25 05:20 06:18 06:20 WBC (4.4-10.8) 10^3/uL 8.11 RBC (4.36-5.78) 10^6/uL 4.15 L Hgb (13.5-17.5) g/dL 12.7 L Hct (40.0-50.0) % 39.2 L MCV (80-95) fL 95 MCH (27.0-33.0) pg 30.6 MCHC (32.0-36.0) % 32.4 RDW (11.8-14.1) % 13.2 Plt Count (130-400) 10^3/uL 127 L MPV (8.0-11.0) fL 12.4 H Immature Gran % % 0.6 Neutrophils % % 65.1 Lymphocytes % % 21.5 Monocytes % % 10.5 Eosinophils % % 1.8 Basophils % % 0.5 Nucleated RBC % (0.0-0.3) % 0.0 Absolute Neutrophils (1.2-6.7) 10^3/uL 5.28 Absolute Lymphocytes (1.2-3.4) 10^3/uL 1.74 Absolute Monocytes (0.1-0.8) 10^3/uL 0.85 H Absolute Eosinophils (0.0-0.7) 10^3/uL 0.15 Absolute Basophils (0.0-0.2) 10^3/uL 0.04 PT (9.1-11.1) sec 10.1 INR (0.9-1.1) 1.0 APTT (20.6-30.2) sec 26.4 Sodium (136-145) mmol/L 140 Potassium (3.5-5.1) mmol/L 5.2 H Chloride (98-107) mmol/L 106 Carbon Dioxide (21.0-32.0) mmol/L 25.4 Anion Gap (3-11) mmol/L 8.6 BUN (7-18) mg/dL 22 H Creatinine (0.70-1.30) mg/dL 1.4 H Est GFR (CKD-EPI 2020) (mL/min/1.73m2) 49.25 Glucose (74-106) mg/dL 195 H Calcium (8.5-10.1) mg/dL 8.4 L Magnesium (1.8-2.4) mg/dL 1.0 L Total Bilirubin (0.2-1.0) mg/dL 0.6 AST (15-37) U/L 15 ALT (16-63) U/L 20 Alkaline Phosphatase (46-116) U/L 181 H Troponin I (<or=76) ng/L 6 7 NT-Pro-B Natriuret Pep (<300) pg/mL 496 H Total Protein (6.4-8.2) g/dL 7.0 Albumin (3.4-5.0) g/dL 3.3 L Lipase (<78) U/L 49 Urine Color (Yellow) Yellow Urine Clarity (Clear) Clear Urine pH (5-8) 5.5 Ur Specific [place] (1.005-1.025) 1.010 Urine Protein (Neg-Trace) mg/dL Negative Urine Ketones (Negative) mg/dL Negative Urine Blood (Negative) Negative Urine Nitrite (Negative) Negative Urine Bilirubin (Negative) Negative Urine Urobilinogen (Up to 0.2) mg/dL 1.0 H Ur Leukocyte Esterase (Negative) Negative Urine Glucose (Negative) mg/dL Negative Critical Care Time Critical Care Time Critical Care Time: Yes Total Critical Care Time: 48 Attestation: Due to a high probability of clinically significant, life threatening deterioration, the patient required my highest level of preparedness to intervene emergently and I personally spent this critical care time directly and personally managing the patient. This critical care time included obtaining a history; examining the patient; pulse oximetry; ordering and review of studies; arranging urgent treatment with development of a management plan; evaluation of patient's response to treatment; frequent reassessment; and, discussions with other providers. This critical care time was performed to assess and manage the high probability of imminent, life-threatening deterioration that could result in multi-organ failure. It was exclusive of separately billable procedures and treating other patients PFSH All Active Problems (Updated 06/25/25 @ 07:39 by Alfreda Cedeno MD) Chronic hyperkalemia (Acute) Acute hypoxemic respiratory failure (Acute) Hypomagnesemia (Acute) Pulmonary embolism (Chronic) Skin lesion (Acute) Degenerative arthritis of knee, bilateral (Acute) Actinic keratoses (Acute) Squamous cell carcinoma of cheek (Acute) Asymmetrical sensorineural hearing loss (Acute) Impacted cerumen, right ear (Acute) Contrast-induced nephropathy (Acute) Impacted cerumen, bilateral (Acute) Hyperkalemia (Acute) Pararenal abdominal aortic aneurysm (AAA) without rupture (Acute) 01/03/2023 - 5.4 cm (needs to meet threshold of 5.5 cm before action can be taken) Will repeat CT in 6 months - Dr Jun Wright 12/27/2023 - Now at 5.7 cm, proceeding with PMEG FEVAR Renal mass, left (Acute 01/20/22) Elevated blood pressure reading (Acute) Asymmetrical hearing loss of both ears (Chronic) note: 10/15/20 not interested in hearing test per Dr. Barahona Conductive hearing loss in right ear (Acute) Chronic serous otitis media, right ear (Acute) Dr Barahona. 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) Sensorineural hearing loss, bilateral (Chronic 07/09/15) Peripheral vascular disease (Chronic) s/p bilateral carotid endarterectomies ~2002 Obesity, unspecified (Chronic 02/08/12) Hypoaldosteronism (Chronic 11/04/16) ttendency to hyperkalemia: no salt substitutes Hyperlipidemia (Chronic 02/08/12) Heart murmur, systolic (Chronic 05/31/16) mild /AR on ECHO 06/06/16, EF 60% BPH w/o urinary obs/LUTS (Chronic) bx neg 05/2010 Gastroesophageal reflux disease (Chronic 02/08/12) Essential hypertension (Chronic 01/31/00) h/o hctz, lisinopril; d/c hctz 11/2013; d/c lisinopril 12/2013, resume lisinopril 06/2014 Elevated PSA (Chronic 06/20/16) Diabetes mellitus (Chronic 04/29/02) DX 2001 MULTIPLE FBS>126; ONE PP 276 IN 12/2005; A1C 7.0 IN 2002; CONTROL DIET, METFORMIN, EXERCISE Alkaline phosphatase raised (Chronic 02/08/12) bone (normal GGT repeatedly) Medical History Abdominal aortic aneurysm (AAA) without rupture (04/29/16) Abdominal US: 5cm AAA above bifurcation; 4.8 x 4.2 by CTA [facility] Dr Morales Wright, f/u 09/2016 [facility]; Bruit 04/17/19 5.1 cm , 10/21/19 5.4 cm, repeat 6 mos. 06/22/20 AAA=5.6 cm Surgical History Hx of nasal septoplasty Hx of excision of mass (~07/2024) Area on R facial cheek Status post aortic coarctation stent placement 5 stents, per pt H/O carotid endarterectomy H/O bilateral cataract extraction Hx of colonoscopy cataract extraction (07/21/15) intraocular lens implant right Dr Ortiz; also Left cataract extraction (07/07/15) intraocular lens implant right Dr Ortiz; also Left Prostate Biopsy (06/08/10) [facility] for elevated PSA, neg Extraction of cataract Family History Mother , old age at age 95. No problems noted. Father , liver problems at age 68. Liver disease Brother , brain aneurysm at age 64. No problems noted. Brother Age: 90 Neoplasm Social History Smoking/Tobacco Use Status: Former Tobacco Use Quit Date: 08/30/83 Tobacco: How many years used: 30 Smoking risk assessment performed?: Yes Alcohol Intake: current Alcohol Intake frequency: a few times a week Alcohol type: hard liquor Drug use: Never Substance use type: does not use Details: alcohol: t-5 Adopted: No Caregiver/Support person: No Household members: significant other Housing: house Number of Children: 2 Communication Needs: Hard of Hearing and Corrective Lenses Education Level: high school Do you need help understanding health information?: Never Pets and animals: Yes Pets and animals: dog(s) Do you think of yourself as: straight/heterosexual Current gender identity: male What is your relationship status?: living with partner Do you belong to any clubs or organized social groups?: yes Panel score (0-1 are the most socially isolated patients): 2 What type of physical activity do you participate in: other Details: physically active daily/woodpile Duration: 60-90 minutes/day Frequency: daily Amber/Yarsani: Mandaeism Special amber needs: No Seatbelt use: always Drive intox or ride w/intox driver material handler: No Working smoke detector in home: Yes Carbon monox detector in home: Yes Do you feel safe at home: Yes Do you feel safe in your relationship?: Yes Additional Social history: [employer]
[2025-06-25 05:29] LABS: Abs Immature Grans 0.05 10^3/uL (0.0-0.06); HCT 39.2 % (40.0-50.0); HGB 12.7 g/dL (13.5-17.5); Immature Grans % 0.6 %; MCH 30.6 pg (27.0-33.0); MCHC 32.4 % (32.0-36.0); MCV 95 fL (80-95); MPV 12.4 fL (8.0-11.0); Platelet Count 127 10^3/uL (130-400); RBC 4.15 10^6/uL (4.36-5.78); RDW 13.2 % (11.8-14.1); RDW-SD 45.4 fL; WBC 8.11 10^3/uL (4.4-10.8)
[2025-06-25] MEDS: ACETAMINOPHEN 1,000 MG/100 ML BAG 400 MG IVPB (05:40)
[2025-06-25] MEDS: Ondansetron 4 MG/2 ML VIAL IVP (05:41)
[2025-06-25 05:52] LABS: INR 1.0 (0.9-1.1); PTT Activated 26.4 sec (20.6-30.2); Prothrombin Time 10.1 sec (9.1-11.1)
[2025-06-25 05:56] LABS: ALT 20 U/L (16-63); AST 15 U/L (15-37); Albumin 3.3 g/dL (3.4-5.0); Alkaline Phosphatase 181 U/L (46-116); Anion Gap 8.6 mmol/L (3-11); BUN 22 mg/dL (7-18); Bilirubin, Total 0.6 mg/dL (0.2-1.0); CO2 25.4 mmol/L (21.0-32.0); Calcium 8.4 mg/dL (8.5-10.1); Chloride 106 mmol/L (98-107); Estimated GFR 49.25 (mL/min/1.73m2); Glucose 195 mg/dL (74-106); Lipase 49 U/L (<78); Magnesium 1.0 mg/dL (1.8-2.4); NT-proBNP 496 pg/mL (<300); Potassium 5.2 mmol/L (3.5-5.1); Sodium 140 mmol/L (136-145); Total Protein 7.0 g/dL (6.4-8.2); Troponin I 6 ng/L (<or=76)
[2025-06-25 06:30] LABS: Glucose Negative (Negative)
[2025-06-25] MEDS: MAGNESIUM SULFATE 2 GM/50 ML BAG IV_INF ×2 (06:35→17:23)
--- NOTE | 2025-06-25 06:35 | DI.VRAD_ITS ---
Addendum created by Ryan Lugo MD on 06/25/2025 6:38:47 AM EDT: Findings were discussed with EVERETTE BEST at 06/25/2025 6:38 AM EDT. Initial report created on 06/25/2025 6:35:19 AM EDT: PROCEDURE INFORMATION: Exam: CTA Chest With Contrast CTA Abdomen and Pelvis With Contrast Exam date and time: 06/25/2025 5:20 AM Age: 84 years old Clinical indication: Abdominal pain; Other: Severe stomach pain; Eval for aortic dissection TECHNIQUE: Imaging protocol: Computed tomographic angiography of the chest with contrast. Exam focused on the arteries. Computed tomographic angiography of the abdomen and pelvis with contrast. Exam focused on the arteries. 3D rendering (Not supervised by radiologist): MIP and/or 3D reconstructed images were created by the technologist. 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 Pulmonary arteries: Filling defect is identified in 1 of the segmental arteries in the lingula on axial image number 63, series 15. Filling defect is seen in 1 of the segmental arteries in the right lower lobe on axial image number 90, series 15. Aorta: Scattered arteriosclerotic changes are noted. Aortic endograft is seen extending from approximately the level of the hemidiaphragm to just above the iliac bifurcation, a finding not present on the previous study. The stent passes through an abdominal aortic aneurysm having diameters measuring 5.5 x 4.9 cm and having a length of approximately 6.3 cm. There is no endoleak identified. No aortic dissection. Celiac trunk and mesenteric arteries: Patent stent is seen at the origin of the celiac artery, a finding not present on the previous study. Patent stent is seen at the origin of the superior mesenteric artery, a finding not present on the previous study. Renal arteries: Stents are seen at the origins of the renal arteries bilaterally, a finding not present on the previous study. Right iliac arteries: Stent is seen involving the distal right external carotid artery. Arteriosclerotic changes are noted. Left iliac arteries: No occlusion or significant stenosis. Arteriosclerotic changes are noted. Thyroid: Low-density right thyroid nodule is partially visualized measuring approximately 1 cm in size. CHEST: Lungs: Linear atelectasis and/or fibrosis is seen involving the right lower lobe. There is mild thickening and/or subsegmental atelectasis along the right minor fissure. There is increased haziness of the dependent portions of the lower lobes, more prominently on the right side, suggesting dependent congestion. Pleural spaces: Minimal right pleural effusion is noted. Heart: Unremarkable. No cardiomegaly. No pericardial effusion. Heart RV/LV ratio: The RV/LV ratio is less than 1. Coronary arteries: Coronary artery calcifications are noted, a finding also present on the previous study. ABDOMEN AND PELVIS: Liver: There is fatty infiltration of the liver. Gallbladder and biliary ducts: Unremarkable. No calcified stones. No ductal dilation. Pancreas: Unremarkable. No mass. No ductal dilation. Spleen: Unremarkable. No splenomegaly. Adrenal glands: Unremarkable. No mass. Kidneys and ureters: Bilateral renal cysts are identified. The largest cyst is in the left kidney and it measures approximately 3 cm. Stomach and bowel: There is a complex gas-containing structure in the region of the 3rd portion of the duodenum measuring approximately 3.0 x 3.6 x 5.9 cm, having the appearance of duodenal diverticulum, a finding also present on the previous study. Colonic diverticula are demonstrated but there is no evidence for acute diverticulitis, a finding also present on the previous study. Appendix: The appendix is normal in appearance. Intraperitoneal space: Unremarkable. No free air. No significant fluid collection. Urinary bladder: Unremarkable. No mass. Reproductive: The prostate gland is markedly enlarged measuring approximately 8.6 x 7.2 x 7.6 cm and it has a heterogeneous appearance, similar to the previous study. Prostatic calcifications are demonstrated, a finding also present on the previous study. Lymph nodes: Mild mediastinal adenopathy is noted with the largest lymph node having a short axis diameter of approximately 1.1 cm. Bones/joints: Degenerative disc disease is demonstrated at T1-2. There is narrowing of the intervertebral disc spaces at L1-L2-3 and L4-L5. Vacuum phenomena is seen involving the inner vertebral discs at L1-L2 and L4-L5. Soft tissues: Unremarkable. IMPRESSION: 1. 2 small pulmonary emboli, as described above. 2. Right thyroid lesion. 3. Mild mediastinal adenopathy. 4. Coronary artery calcifications. 5. Right pleural effusion. 6. Linear atelectasis and/or fibrosis, as described above. 7. Fatty infiltration of the liver. 8. Duodenal diverticulum. 9. Bilateral renal cysts. 10. Colonic diverticulosis. 11. Abdominal endograft passing through an infrarenal abdominal aortic aneurysm. 12. Multiple abdominal arterial stents, as described above. 13. Markedly enlarged, heterogeneous prostate gland with prostatic calcifications 14. Degenerative changes involving the lumbar spine, as described above. Dictated and Authenticated by: Ryan Lugo MD. Orderin Wilian Gant MD
[2025-06-25 06:51] LABS: Troponin I 7 ng/L (<or=76)
[2025-06-25] MEDS: Heparin in 0.45% NaCl 25,000 UNIT/250 ML BAG 17.5 UNIT IVINF (07:46)
--- NOTE | 2025-06-25 08:00 | DI.US_ITS ---
Exam(s) US EXTREMITY VENOUS BI EXAM: US EXTREMITY VENOUS BI CLINICAL HISTORY: PEs, please document DVT burden. TECHNIQUE: Bilateral lower extremity venous ultrasound performed using grayscale, color-flow, and spectral Doppler analysis. COMPARISON: No exams were available for comparison FINDINGS: The right common femoral, femoral and popliteal veins demonstrate normal compressibility, augmentation, and color Doppler. The posterior tibial and peroneal veins are patent. The saphenofemoral junction is unremarkable. There is no evidence of a Gotti's cyst. The soft tissues are unremarkable. The left common femoral, femoral and popliteal veins demonstrate normal compressibility, augmentation, and color Doppler. The posterior tibial and peroneal veins are patent. The saphenofemoral junction is unremarkable. There is no evidence of a Gotti's cyst. The soft tissues are unremarkable. IMPRESSION: 1. No evidence of a right lower extremity DVT. 2. No evidence of a left lower extremity DVT. DATA REPOSITORY:
--- NOTE | 2025-06-25 08:00 | W.PM.HP.N ---
Date of service: 06/25/25 Time of Service: 15:58 Assessment and Plan Assessment and plan (1) Pulmonary embolism: Status: Chronic Assessment and plan: Moderate risk, hypoxic, so admission indicated. Reviewed with cardiology again, no intervention indicated, tolerating anticoagulation, can keep him here as this is his preference. After echo, if right heart okay, can transition to oral anticoagulation with apixaban. If right heart dysfunction call cardiology back. He told me he wants to be coded even though DNR/DNI on record (2) Acute hypoxemic respiratory failure: Status: Acute Assessment and plan: Secondary to above. Stable on 2 liters. Only mild BNaP elevation not high for age, no strain on CT. echo pending, but no overt CHF. (3) Peripheral vascular disease: Status: Chronic Assessment and plan: Continue ASA/statin. Not recent lipids so repeat this. With PAD, will continue ASA even though he will need blood thinner as this is general vascular recommendations. (4) Essential hypertension: Status: Chronic Assessment and plan: Stable, continue home BP meds. (5) Diabetes mellitus: Status: Chronic Assessment and plan: A1c reasonable on just metformin at 7.3%. Hold metformin with CTA. Use ISS. (6) Pararenal abdominal aortic aneurysm (AAA) without rupture: Status: Acute Assessment and plan: stable on CTA without signs of leaking. (7) BPH w/o urinary obs/LUTS: Status: Chronic Assessment and plan: Doesn't tolerate alpha block, on tadalafil, continue if he can get it from home. (8) Hypomagnesemia: Status: Acute Assessment and plan: quite low, replaced with 2g in ED, will need more, additional 2 g and follow (9) CKD stage 3a, GFR 45-59 ml/min: Status: Acute Assessment and plan: at baseline, follow (10) Low vitamin B12 level: Status: Acute Assessment and plan: checked b12 with borderline low platelets and chornic metformin use, and it is quite low. No clear symptoms but he does have anemia with high normal MCV. Supplement with a shot, then orally. (11) Hypoaldosteronism: Status: Chronic Assessment and plan: chronic hyperkalemia, mild. Monitor. History of Present Illness History of Present Illness Chief Complaint: short of breath Narrative: 84 yo M with type 2 DM, HTN, PAD with repaired AAA, CKD3a, who presented with sudden onset pleuritic right flank pain and shortness of breath. He woke up with pain in the right flank at around midnight the morning of admission. Pain sharp, much worse with deep breath. He felt like he couldn't take deep breaths. He tried to sleep but couldn't, came into the ED at around 5am when he wasn't getting better. Pain does not radiated to mid or left chest or neck/arms. He has not had cough/sputum or hemoptysis. He did not pass out, denies dizziness or palpitations. He had not had a recent long trip or immobilization, though he did spend 6-7 hours on his tractor the day before admission haying his childs. He hasn't had URI symtpoms including fevers. He hasn't changed medications. He does have a long history of BPH with elevated PSA, stopped monitoring this due to his age, but no know malignancy. No recent smoking. Review of Systems All systems reviewed & are unremarkable except as noted in HPI and below PFSH All Active Problems (Updated 06/25/25 @ 17:11 by Tommy Leyva) Low vitamin B12 level (Acute) CKD stage 3a, GFR 45-59 ml/min (Acute) Chronic hyperkalemia (Acute) Acute hypoxemic respiratory failure (Acute) Hypomagnesemia (Acute) Pulmonary embolism (Chronic) Skin lesion (Acute) Degenerative arthritis of knee, bilateral (Acute) Actinic keratoses (Acute) Squamous cell carcinoma of cheek (Acute) Asymmetrical sensorineural hearing loss (Acute) Impacted cerumen, right ear (Acute) Contrast-induced nephropathy (Acute) Impacted cerumen, bilateral (Acute) Hyperkalemia (Acute) Pararenal abdominal aortic aneurysm (AAA) without rupture (Acute) 01/03/2023 - 5.4 cm (needs to meet threshold of 5.5 cm before action can be taken) Will repeat CT in 6 months - Dr Jun Wright 12/27/2023 - Now at 5.7 cm, proceeding with PMEG FEVAR Renal mass, left (Acute 01/20/22) Elevated blood pressure reading (Acute) Asymmetrical hearing loss of both ears (Chronic) note: 10/15/20 not interested in hearing test per Dr. Barahona Conductive hearing loss in right ear (Acute) Chronic serous otitis media, right ear (Acute) Dr Barahona. 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) Sensorineural hearing loss, bilateral (Chronic 07/09/15) Peripheral vascular disease (Chronic) s/p bilateral carotid endarterectomies ~2002 Obesity, unspecified (Chronic 02/08/12) Hypoaldosteronism (Chronic 11/04/16) ttendency to hyperkalemia: no salt substitutes Hyperlipidemia (Chronic 02/08/12) Heart murmur, systolic (Chronic 05/31/16) mild /AR on ECHO 06/06/16, EF 60% BPH w/o urinary obs/LUTS (Chronic) bx neg 05/2010 Gastroesophageal reflux disease (Chronic 02/08/12) Essential hypertension (Chronic 01/31/00) h/o hctz, lisinopril; d/c hctz 11/2013; d/c lisinopril 12/2013, resume lisinopril 06/2014 Elevated PSA (Chronic 06/20/16) Diabetes mellitus (Chronic 04/29/02) DX 2001 MULTIPLE FBS>126; ONE PP 276 IN 12/2005; A1C 7.0 IN 2002; CONTROL DIET, METFORMIN, EXERCISE Alkaline phosphatase raised (Chronic 02/08/12) bone (normal GGT repeatedly) Medical History Abdominal aortic aneurysm (AAA) without rupture (04/29/16) Abdominal US: 5cm AAA above bifurcation; 4.8 x 4.2 by CTA [facility] [place] Dr Morales Wright, f/u 09/2016 [facility]; Bruit 04/17/19 5.1 cm , 10/21/19 5.4 cm, repeat 6 mos. 06/22/20 AAA=5.6 cm Surgical History Hx of nasal septoplasty Hx of excision of mass (~07/2024) Area on R facial cheek Status post aortic coarctation stent placement 5 stents, per pt H/O carotid endarterectomy H/O bilateral cataract extraction Hx of colonoscopy cataract extraction (07/21/15) intraocular lens implant right Dr Ortiz; also Left cataract extraction (07/07/15) intraocular lens implant right Dr Ortiz; also Left Prostate Biopsy (06/08/10) [facility] for elevated PSA, neg Extraction of cataract Family History Mother , old age at age 95. No problems noted. Father , liver problems at age 68. Liver disease Brother , brain aneurysm at age 64. No problems noted. Brother Age: 91 Neoplasm Social History (Updated 06/25/25 @ 16:58 by Tommy Leyva) Smoking/Tobacco Use Status: Former Tobacco Use Quit Date: 08/30/83 Tobacco: How many years used: 30 Smoking risk assessment performed?: Yes Alcohol Intake: current Alcohol Intake frequency: a few times a week Alcohol type: hard liquor Drug use: Never Substance use type: does not use Details: alcohol: t-5 Adopted: No Caregiver/Support person: No Household members: significant other Housing: house Number of Children: 2 Communication Needs: Hard of Hearing and Corrective Lenses Education Level: high school Do you need help understanding health information?: Never Pets and animals: Yes Pets and animals: dog(s) Do you think of yourself as: straight/heterosexual Current gender identity: male What is your relationship status?: living with partner Do you belong to any clubs or organized social groups?: yes Panel score (0-1 are the most socially isolated patients): 2 What type of physical activity do you participate in: other Details: physically active daily/woodpile Duration: 60-90 minutes/day Frequency: daily Amber/Methodist: Syn[employer] Special amber needs: No Seatbelt use: always Drive intox or ride w/intox delivery truck driver heavy: No Working smoke detector in home: Yes Carbon monox detector in home: Yes Do you feel safe at home: Yes Do you feel safe in your relationship?: Yes Additional Social history: Lives in home in [place] with partner Salena. Active, cares for self. Meds Allergies and Home Medications Allergies Allergy/AdvReac Type Severity Reaction Status Date / Time tamsulosin AdvReac Intermediate Dizziness Verified 06/25/25 05:14 hydrochlorothiazide AdvReac Mild intolerable Verified 06/25/25 05:14 polyurea Home Medications ?Medication ?Instructions ?Recorded ?Confirmed ?Type aspirin 81 mg tablet,delayed 81 mg PO DAILY 02/14/13 06/25/25 History release (Aspir-) vitamins A,C,Z-knfm-jrbgva 4,296 1 tab PO BID 12/15/16 06/25/25 History mcg-226 mg-90 mg capsule (PreserVision AREDS) omeprazole magnesium 20 mg 20 mg PO DAILY #90 caps 07/04/17 06/25/25 History tablet,delayed release (Prilosec OTC) tadalafil 5 mg tablet See Rx Instructions .Route 07/23/24 06/25/25 Rx .COMPLEX #90 tabs amlodipine 5 mg tablet See Rx Instructions .Route 02/14/25 06/25/25 Rx .COMPLEX #180 tabs atenolol 50 mg tablet 50 mg PO DAILY #90 tabs 02/14/25 06/25/25 Rx lisinopril 40 mg tablet 40 mg PO DAILY #90 tabs 02/14/25 06/25/25 Rx metformin 1,000 mg tablet 1,000 mg PO BID #180 tabs 02/14/25 06/25/25 Rx atorvastatin 40 mg tablet See Rx Instructions .Route 03/27/25 06/25/25 Rx .COMPLEX #90 tabs Exam Narrative Exam Narrative: GEN: Alert and oriented x 4, pleasant and cooperative, sitting up in chair, gives linear history. No acute distress at rest. HEENT: Head atraumatic. Conjunctiva clear, no icterus. PEERL, EOMI. no rhinorrhea. MMM, OP benign. Neck is supple with no masses or lymphadenopathy, trachea midline LUNGS: NC in place on 2 liters. speaking in short sentence but no distress at rest, CTAB except diminished with slight rale right base. CV: RRR with 3/6 ystolic murmur (not new). No gallops, or rubs. ABD: active bowel sounds, soft, nontender and nondistended. No masses. EXT: no cyanosis, clubbing, or edema, warm. MSK: No joint redness or swelling NEURO: CN 2-12 grossly intact. Normal movement of 4 extremities. Normal speech and coordination. No tremor SKIN: No rashes or open wounds. PSYCH: normal mood and affect, normal thought process Results Imaging CT scan - chest: report reviewed EKG: report reviewed and image reviewed (NSR, nl axis, intervals, no st-t abnormalities) Imaging Studies: CT C/A/P: 1. 2 small pulmonary emboli, as described above. 2. Right thyroid lesion. 3. Mild mediastinal adenopathy. 4. Coronary artery calcifications. 5. Right pleural effusion. 6. Linear atelectasis and/or fibrosis, as described above. 7. Fatty infiltration of the liver. 8. Duodenal diverticulum. 9. Bilateral renal cysts. 10. Colonic diverticulosis. 11. Abdominal endograft passing through an infrarenal abdominal aortic aneurysm. 12. Multiple abdominal arterial stents, as described above. 13. Markedly enlarged, heterogeneous prostate gland with prostatic calcifications 14. Degenerative changes involving the lumbar spine, as described above Labs 06/25/25 05:20 06/25/25 05:20 Labs: Laboratory Results - last 24 hr 06/25/25 06/25/25 06/25/25 05:20 06:18 06:20 WBC 8.11 RBC 4.15 L Hgb 12.7 L Hct 39.2 L MCV 95 MCH 30.6 MCHC 32.4 RDW 13.2 Plt Count 127 L MPV 12.4 H Immature Gran % 0.6 Neutrophils % 65.1 Lymphocytes % 21.5 Monocytes % 10.5 Eosinophils % 1.8 Basophils % 0.5 Nucleated RBC % 0.0 Absolute Neutrophils 5.28 Absolute Lymphocytes 1.74 Absolute Monocytes 0.85 H Absolute Eosinophils 0.15 Absolute Basophils 0.04 PT 10.1 INR 1.0 APTT 26.4 Sodium 140 Potassium 5.2 H Chloride 106 Carbon Dioxide 25.4 Anion Gap 8.6 BUN 22 H Creatinine 1.4 H Est GFR (CKD-EPI 2020) 49.25 Glucose 195 H Calcium 8.4 L Magnesium 1.0 L Total Bilirubin 0.6 AST 15 ALT 20 Alkaline Phosphatase 181 H Troponin I 6 7 NT-Pro-B Natriuret Pep 496 H Total Protein 7.0 Albumin 3.3 L Lipase 49 Urine Color Yellow Urine Clarity Clear Urine pH 5.5 Ur Specific [place] 1.010 Urine Protein Negative Urine Ketones Negative Urine Blood Negative Urine Nitrite Negative Urine Bilirubin Negative Urine Urobilinogen 1.0 H Ur Leukocyte Esterase Negative Urine Glucose Negative Last Vital Signs Temp 37.3 C 06/25/25 05:08 Pulse 55 L 06/25/25 07:50 Resp 22 06/25/25 07:50 BP 162/48 H 06/25/25 07:47 Pulse Ox 91 L 06/25/25 07:50 Time Spent Time spent with Patient: >75 minutes Time was spent: preparing to see the patient(eg.review tests), obtaining and/or reviewing separately otained hiistory, ordering medications,tests, procedures, referring, communicating with other health foster care worker, indepentently interpreting results, counseling the patient and care coordination
[2025-06-25 08:45] LABS: Lab Add On Test DONE
[2025-06-25] MEDS: amLODIPine 5 MG TAB 10 MG PO (09:03)
[2025-06-25] MEDS: Atorvastatin 40 MG TAB PO (09:04)
[2025-06-25 09:10] LABS: Troponin I 7 ng/L (<or=76)
[2025-06-25 09:14] LABS: NT-proBNP 525 pg/mL (<300)
--- NOTE | 2025-06-25 09:21 | INITIAL_ITS ---
Date of service: 06/25/25 Time of Service: 09:21 Care Management Initial Assmt Initial Assessment Reason for Hospitalization: Pulmonary embolism, Hypomagnesemia, Acute hypoxemic respiratory failure, Chronic hyperkalemia Functional Status/Living Situation Patient Presentation: Shaji was awake and sitting in a recliner when CM met with him. He lives in [place], [place] with his significant other Salena. He is independent at baseline and drives. Shaji is a [employer] (not service connected) and is retired from [employer]. He has 2 daughters Alana and Elena, who both live locally and are supportive. 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 There has been some discussion regarding transfer to a tertiary hospital and he was accepted in transfer to [facility] under the care of Dr. Edwards. However, Shaji expressed a preference to remain at [facility] if possible, noting the distance and that it will be difficult for Salena to travel there. Shaji is willing to transfer to [facility] if deemed absolutely necessary. CM will continue to follow. Town of Residence: [place] Resides with: Spouse (Significant other Salena) Significant Other/Family: Local (Salena) Natural Supports: S/O Salena Daughters Alana and Elena Jeni Employment Status: Retired (care worker) Instrumental Activities of Daily Living (ADLs): Independent Medications Medication Management: No Issues/Barriers identified Physical Functioning/Mobility Assistive Device: None Advance Directives Advance Directives: Do you have an Advance Directive: Y , 09:35 AD On File at [facility]: Y 06/06/25, 09:35 Date Asked 06/25/25 Today, 11:48 AD Date Reviewed 06/25/25 Today, 05:16 COLST On File at [facility] COLST Date Scanned Code Status Resuscitation Status Full Code Portal Pt does not currently have a portal and education provided: Yes Insurance Coverage/Financial Issues Insurance: Medicare Part A & B - [id number] C[employer] Medicare Supplement Ins - [id number] Care Team Visit Care Team Role Provider Type Fabián Dawn DO Primary Care Provider OSTEOPATHIC DOCTOR Alfreda Cedeno MD Emergency Provider [facility] STAFF PHYSICIAN Discharge Potential Discharge Needs: Consult Consult Services Needed: Cardiology and PCP F/U Appt Anticipated Barriers to Discharge: None Identified Patient/Family Education Needs: Review discharge instructions, discuss Ask Me Three Transportation: Private vehicle Plan: ? Possible transfer to Tertiary Hospital. Shaji has expressed that he would like to remain at [facility] if possible, but is agreeable to transfer to [facility] if deemed absolutely necessary. The hospitalist is following and consulting with [facility] for recommendations. CM will follow. Social Determinants of Health Screening Will the Patient Participate in the Screening?: Unable to obtain PFSH All Active Problems (Updated 06/25/25 @ 09:28 by CHRISTIAN RUBIN) Chronic hyperkalemia (Acute) Acute hypoxemic respiratory failure (Acute) Hypomagnesemia (Acute) Pulmonary embolism (Chronic) Skin lesion (Acute) Degenerative arthritis of knee, bilateral (Acute) Actinic keratoses (Acute) Squamous cell carcinoma of cheek (Acute) Asymmetrical sensorineural hearing loss (Acute) Impacted cerumen, right ear (Acute) Contrast-induced nephropathy (Acute) Impacted cerumen, bilateral (Acute) Hyperkalemia (Acute) Pararenal abdominal aortic aneurysm (AAA) without rupture (Acute) 01/03/2023 - 5.4 cm (needs to meet threshold of 5.5 cm before action can be taken) Will repeat CT in 6 months - Dr Jun Wright 12/27/2023 - Now at 5.7 cm, proceeding with PMEG FEVAR Renal mass, left (Acute 01/20/22) Elevated blood pressure reading (Acute) Asymmetrical hearing loss of both ears (Chronic) note: 10/15/20 not interested in hearing test per Dr. Barahona Conductive hearing loss in right ear (Acute) Chronic serous otitis media, right ear (Acute) Dr Barahona. 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) Sensorineural hearing loss, bilateral (Chronic 07/09/15) Peripheral vascular disease (Chronic) s/p bilateral carotid endarterectomies ~2002 Obesity, unspecified (Chronic 02/08/12) Hypoaldosteronism (Chronic 11/04/16) ttendency to hyperkalemia: no salt substitutes Hyperlipidemia (Chronic 02/08/12) Heart murmur, systolic (Chronic 05/31/16) mild /AR on ECHO 06/06/16, EF 60% BPH w/o urinary obs/LUTS (Chronic) bx neg 05/2010 Gastroesophageal reflux disease (Chronic 02/08/12) Essential hypertension (Chronic 01/31/00) h/o hctz, lisinopril; d/c hctz 11/2013; d/c lisinopril 12/2013, resume lisinopril 06/2014 Elevated PSA (Chronic 06/20/16) Diabetes mellitus (Chronic 04/29/02) DX 2001 MULTIPLE FBS>126; ONE PP 276 IN 12/2005; A1C 7.0 IN 2002; CONTROL DIET, METFORMIN, EXERCISE Alkaline phosphatase raised (Chronic 02/08/12) bone (normal GGT repeatedly) Medical History Abdominal aortic aneurysm (AAA) without rupture (04/29/16) Abdominal US: 5cm AAA above bifurcation; 4.8 x 4.2 by CTA [facility] Dr Morales Wright, f/u 09/2016 [facility]; Bruit 04/17/19 5.1 cm , 10/21/19 5.4 cm, repeat 6 mos. 06/22/20 AAA=5.6 cm Surgical History Hx of nasal septoplasty Hx of excision of mass (~07/2024) Area on R facial cheek Status post aortic coarctation stent placement 5 stents, per pt H/O carotid endarterectomy H/O bilateral cataract extraction Hx of colonoscopy cataract extraction (07/21/15) intraocular lens implant right Dr Ortiz; also Left cataract extraction (07/07/15) intraocular lens implant right Dr Ortiz; also Left Prostate Biopsy (06/08/10) [facility] for elevated PSA, neg Extraction of cataract Family History Mother , old age at age 95. No problems noted. Father , liver problems at age 68. Liver disease Brother , brain aneurysm at age 64. No problems noted. Brother Age: 90 Neoplasm Social History Smoking/Tobacco Use Status: Former Tobacco Use Quit Date: 08/30/83 Tobacco: How many years used: 30 Smoking risk assessment performed?: Yes Alcohol Intake: current Alcohol Intake frequency: a few times a week Alcohol type: hard liquor Drug use: Never Substance use type: does not use Details: alcohol: t-5 Adopted: No Caregiver/Support person: No Household members: significant other Housing: house Number of Children: 2 Communication Needs: Hard of Hearing and Corrective Lenses Education Level: high school Do you need help understanding health information?: Never Pets and animals: Yes Pets and animals: dog(s) Do you think of yourself as: straight/heterosexual Current gender identity: male What is your relationship status?: living with partner Do you belong to any clubs or organized social groups?: yes Panel score (0-1 are the most socially isolated patients): 2 What type of physical activity do you participate in: other Details: physically active daily/woodpile Duration: 60-90 minutes/day Frequency: daily Amber/Hinduism: L[employer]-Day Special amber needs: No Seatbelt use: always 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
[2025-06-25 09:33] LABS: Vitamin B12 106 pg/mL (193-986)
[2025-06-25] MEDS: Lisinopril 20 MG TAB 40 MG PO (10:01)
[2025-06-25] MEDS: Atenolol 50 MG TAB PO (10:01)
[2025-06-25] MEDS: Preservision CAPSULE 1 CAP PO ×2 (10:01→20:49)
[2025-06-25] MEDS: Normal Saline Flush 10 ML SYR IVP ×2 (10:02→20:49)
--- NOTE | 2025-06-25 12:14 | W.PC.ACHO ---
Registration Status: ADM IN Primary Language: Preferred Language: Latvian ED Information & Data Chief Complaint Abd Prob 06/25/25 05:28 Triage Note arrives via POV from home 06/25/25 05:08 with , c/o severe R sided stomach pain, had stent placed 2 years ago for an aneurysm, is having pain in the area of the stent. was supposed to have it checked today at [facility] [place]. describes it as throbbing pain that comes and goes. pain started around midnight . did not take anything at home for pain. Denies N/V/D. denies CP, SOB. Medical / Surgical History (Last Reviewed 03/10/25 @ 14:59 by Xavier Barahona MD) Abdominal aortic aneurysm (AAA) without rupture (04/29/16) (Last Reviewed 03/10/25 @ 14:59 by Xavier Barahona MD) Hx of nasal septoplasty Hx of excision of mass (~07/2024) Status post aortic coarctation stent placement H/O carotid endarterectomy H/O bilateral cataract extraction Hx of colonoscopy cataract extraction (07/21/15) cataract extraction (07/07/15) Prostate Biopsy (06/08/10) Extraction of cataract Most Recent Vital Signs Temperature 36 C L 06/25/25 09:39 Temperature Source Temporal Artery Scan 06/25/25 05:08 Pulse 53 L 06/25/25 09:39 Pulse Rhythm Regular 06/25/25 09:39 Pulse 55 L 06/25/25 09:20 Respiratory Rate 14 06/25/25 09:39 Respiratory Effort Normal, Non-Labored 06/25/25 09:39 Respiratory Depth Normal 06/25/25 09:39 Respiratory Pattern Normal 06/25/25 09:39 Blood Pressure 141/63 H 06/25/25 09:39 Blood Pressure Mean 89 06/25/25 09:16 Pulse Oximetry 96 06/25/25 09:39 Oxygen Delivery Method Nasal Cannula 06/25/25 09:39 Oxygen Flow Rate 2 06/25/25 09:39 Pain Level 7 06/25/25 05:08 Comment 2LNC 06/25/25 08:16 Allergies tamsulosin Adverse Reaction (Intermediate, Verified 06/25/25 05:14) Dizziness 02/2017 reports dizziness resolved after stopping hydrochlorothiazide Adverse Reaction (Mild, Verified 06/25/25 05:14) intolerable polyurea Precautions Isolation Standard precaution 06/25/25 05:13 Active Medications Generic Name Dose Route Start Last Admin Trade Name Sabrina PRN Reason Stop Dose Admin Amlodipine Besylate 10 mg 06/25/25 08:30 06/25/25 09:03 Amlodipine 5 Mg Tab PO 10 mg DAILY KATE Administration Aspirin 81 mg 06/25/25 08:30 06/25/25 09:02 Aspirin E.C. 81 Mg Tabec PO Not Given DAILY KATE Atenolol 50 mg 06/25/25 08:30 06/25/25 10:01 Atenolol 50 Mg Tab PO 50 mg DAILY KATE Administration Atorvastatin Calcium 40 mg 06/25/25 08:30 06/25/25 09:04 Atorvastatin 40 Mg Tab PO 40 mg DAILY KATE Administration Heparin Sodium/Sodium Chloride 25,000 unit in 250 mls @ 0 mls/hr 06/25/25 07:15 06/25/25 07:46 IVINF 17.5 mls/hr INFUSION KATE 17.5 mls/hr Protocol Administration Per Protocol Insulin Aspart 0 units 06/25/25 08:00 06/25/25 12:10 Insulin Aspart 300 Units/3 Ml Pen SC Not Given 0800,1200,1700 [facility] Protocol Lisinopril 40 mg 06/25/25 08:30 06/25/25 10:01 Lisinopril 20 Mg Tab PO 40 mg DAILY KATE Administration Pt's Own Tadalafil 5 1 each 06/25/25 08:30 06/25/25 10:02 Mg Tablet PO Not Given DAILY KATE Sodium Chloride 0 ml 06/25/25 08:30 06/25/25 10:02 Normal Saline Flush 10 Ml Syr IVP 10 ml BID KATE Administration Vit C/Vit E/Zinc/Copper/Lutein 1 cap 06/25/25 08:30 06/25/25 10:01 Preservision Capsule PO 1 cap BID KATE Administration IV IV Catheter Type [Left Saline Lock Antecubital] IV Catheter Gauge [Left 20 Antecubital] Diet Orders Category Date Time Status Diabetes Consistent CHO/Heart Healthy [DIET] Nutrition 06/25/25 Lunch Active Diagnostics 06/25/25 06/25/25 06/25/25 Range/Units 08:42 06:20 06:18 WBC (4.4-10.8) 10^3/uL RBC (4.36-5.78) 10^6/uL Hgb (13.5-17.5) g/dL Hct (40.0-50.0) % MCV (80-95) fL MCH (27.0-33.0) pg MCHC (32.0-36.0) % RDW (11.8-14.1) % Plt Count (130-400) 10^3/uL MPV (8.0-11.0) fL Immature Gran % % Neutrophils % % Lymphocytes % % Monocytes % % Eosinophils % % Basophils % % Nucleated RBC % (0.0-0.3) % Absolute Neutrophils (1.2-6.7) 10^3/uL Absolute Lymphocytes (1.2-3.4) 10^3/uL Absolute Monocytes (0.1-0.8) 10^3/uL Absolute Eosinophils (0.0-0.7) 10^3/uL Absolute Basophils (0.0-0.2) 10^3/uL PT (9.1-11.1) sec INR (0.9-1.1) APTT (20.6-30.2) sec Sodium (136-145) mmol/L Potassium (3.5-5.1) mmol/L Chloride (98-107) mmol/L Carbon Dioxide (21.0-32.0) mmol/L Anion Gap (3-11) mmol/L BUN (7-18) mg/dL Creatinine (0.70-1.30) mg/dL Est GFR (CKD-EPI 2020) (mL/min/1.73m2) Glucose (74-106) mg/dL Calcium (8.5-10.1) mg/dL Magnesium (1.8-2.4) mg/dL Total Bilirubin (0.2-1.0) mg/dL AST (15-37) U/L ALT (16-63) U/L Alkaline Phosphatase (46-116) U/L Troponin I 7 7 (<or=76) ng/L NT-Pro-B Natriuret Pep 525 H (<300) pg/mL Total Protein (6.4-8.2) g/dL Albumin (3.4-5.0) g/dL Lipase (<78) U/L Vitamin B12 106 L (193-986) pg/mL Urine Color Yellow (Yellow) Urine Clarity Clear (Clear) Urine pH 5.5 (5-8) Ur Specific [place] 1.010 (1.005-1.025) Urine Protein Negative (Neg-Trace) mg/dL Urine Ketones Negative (Negative) mg/dL Urine Blood Negative (Negative) Urine Nitrite Negative (Negative) Urine Bilirubin Negative (Negative) Urine Urobilinogen 1.0 H (Up to 0.2) mg/dL Ur Leukocyte Esterase Negative (Negative) Urine Glucose Negative (Negative) mg/dL Add-On Test Request DONE 06/25/25 Range/Units 05:20 WBC 8.11 (4.4-10.8) 10^3/uL RBC 4.15 L (4.36-5.78) 10^6/uL Hgb 12.7 L (13.5-17.5) g/dL Hct 39.2 L (40.0-50.0) % MCV 95 (80-95) fL MCH 30.6 (27.0-33.0) pg MCHC 32.4 (32.0-36.0) % RDW 13.2 (11.8-14.1) % Plt Count 127 L (130-400) 10^3/uL MPV 12.4 H (8.0-11.0) fL Immature Gran % 0.6 % Neutrophils % 65.1 % Lymphocytes % 21.5 % Monocytes % 10.5 % Eosinophils % 1.8 % Basophils % 0.5 % Nucleated RBC % 0.0 (0.0-0.3) % Absolute Neutrophils 5.28 (1.2-6.7) 10^3/uL Absolute Lymphocytes 1.74 (1.2-3.4) 10^3/uL Absolute Monocytes 0.85 H (0.1-0.8) 10^3/uL Absolute Eosinophils 0.15 (0.0-0.7) 10^3/uL Absolute Basophils 0.04 (0.0-0.2) 10^3/uL PT 10.1 (9.1-11.1) sec INR 1.0 (0.9-1.1) APTT 26.4 (20.6-30.2) sec Sodium 140 (136-145) mmol/L Potassium 5.2 H (3.5-5.1) mmol/L Chloride 106 (98-107) mmol/L Carbon Dioxide 25.4 (21.0-32.0) mmol/L Anion Gap 8.6 (3-11) mmol/L BUN 22 H (7-18) mg/dL Creatinine 1.4 H (0.70-1.30) mg/dL Est GFR (CKD-EPI 2020) 49.25 (mL/min/1.73m2) Glucose 195 H (74-106) mg/dL Calcium 8.4 L (8.5-10.1) mg/dL Magnesium 1.0 L (1.8-2.4) mg/dL Total Bilirubin 0.6 (0.2-1.0) mg/dL AST 15 (15-37) U/L ALT 20 (16-63) U/L Alkaline Phosphatase 181 H (46-116) U/L Troponin I 6 (<or=76) ng/L NT-Pro-B Natriuret Pep 496 H (<300) pg/mL Total Protein 7.0 (6.4-8.2) g/dL Albumin 3.3 L (3.4-5.0) g/dL Lipase 49 (<78) U/L Vitamin B12 (193-986) pg/mL Urine Color (Yellow) Urine Clarity (Clear) Urine pH (5-8) Ur Specific [place] (1.005-1.025) Urine Protein (Neg-Trace) mg/dL Urine Ketones (Negative) mg/dL Urine Blood (Negative) Urine Nitrite (Negative) Urine Bilirubin (Negative) Urine Urobilinogen (Up to 0.2) mg/dL Ur Leukocyte Esterase (Negative) Urine Glucose (Negative) mg/dL Add-On Test Request [id number] Documentation Fingerstick Glucose Start: 06/25/25 07:56 Freq: .AC Status: Active Protocol: Activity Type Activity Date Activity User E-sign Co-sign Detail Recorded Client Recorded Date Recorded By Document 06/25/25 12:08 CHRISTIAN DAEMON(3) [id number] 06/25/25 12:09 BKG DAEMON(4) Intake and Output - 24 Hour Total 06/25/25 05:05 thru 06/25/25 09:39 Intake Total 150 Balance 150 Weight 99 kg Intake: IV 150 Other: Urine Appearance Clear Cloudy Falls Risk Assessment History of Falls No History 06/25/25 09:39 Contributing Factors No Factors 06/25/25 09:39 Ambulatory Aids Independent 06/25/25 09:39 Tubes/Lines W/no contributing factors 06/25/25 09:39 Gait Evaluation No gait disturbance 06/25/25 09:39 Cognition No cognitive impairment 06/25/25 05:13 Fall Total Score 10 06/25/25 09:39 Level of Risk Standard/Low Risk 06/25/25 09:39 v v v v v v v v v Sending and/or Receiving Nurses: Please use comment section below to note any information pertinent to the patient hand-off not included above. Information / Comments:Pt ac fs, held in ED. Many meds not available in ED. RN reports travel nurse on prior shift ran Mag wide open instead of on a pump over 2 hours. Pt on tele. Report received from: Melissa Ponce, ED RN. report called at [phone].
--- NOTE | 2025-06-25 13:43 | PHA.REVIEW2 ---
Pharmacy Admission Review Admission Clinical Review Admission Pharmacy Review: tamsulosin Adverse Reaction (Intermediate, Verified 06/25/25 05:14) Dizziness hydrochlorothiazide Adverse Reaction (Mild, Verified 06/25/25 05:14) intolerable polyurea Resuscitation Status Full Code Height 5 ft 9 in Weight 99 kg Pharmacy Admission Review Renal Dosing Renal Dosing: BUN 22 mg/dL (7-18) H 06/25/25 05:20 Creatinine 1.4 mg/dL (0.70-1.30) H 06/25/25 05:20 Medications needing adjustments: Reviewed (CrCl 44.7 mL/min) List of meds needing interventions: Current medications are okay Anticoagulation Anticoagulation: Hgb 12.7 g/dL (13.5-17.5) L 06/25/25 05:20 Hct 39.2 % (40.0-50.0) L 06/25/25 05:20 Plt Count 127 10^3/uL (130-400) L 06/25/25 05:20 INR 1.0 (0.9-1.1) 06/25/25 05:20 Creatinine 1.4 mg/dL (0.70-1.30) H 06/25/25 05:20 Therapeutic Anticoagulation: Reviewed (PE) Medications: Heparin (infusion @ 17.5 ml/hr) Relevant Labs Relevant Labs: Sodium 140 mmol/L (136-145) 06/25/25 05:20 Potassium 5.2 mmol/L (3.5-5.1) H 06/25/25 05:20 Chloride 106 mmol/L (98-107) 06/25/25 05:20 Magnesium 1.0 mg/dL (1.8-2.4) L 06/25/25 05:20 Electrolytes, C-Reactive P, ESR: Reviewed (received 2g Mg infusion this morning) DM Control DM Control: Glucose 195 mg/dL (74-106) H 06/25/25 05:20 Finger Stick Blood Glucose 123 1210 Finger Stick Blood Glucose 123 1208 Finger Stick Blood Glucose 123 1208 Finger Stick Blood Glucose 155 1128 Finger Stick Blood Glucose 155 0848 Finger Stick Blood Glucose 155 0840 Finger Stick Blood Glucose 155 0840 DM Control: Reviewed Insulin Dosing, Diabetic Medication: Has order for SS insulin Cardiac Review Cardiac Review: Troponin I 7 ng/L (<or=76) 06/25/25 08:42 NT-Pro-B Natriuret Pep 525 pg/mL (<300) H 06/25/25 08:42 Blood Pressure 129/72 1130 Blood Pressure 141/63 0939 Blood Pressure 151/52 0916 Blood Pressure 152/60 0901 Blood Pressure 150/50 0846 Blood Pressure 177/62 0802 Blood Pressure 142/51 0747 Blood Pressure 162/48 0730 Blood Pressure 168/49 0716 Blood Pressure 149/51 0701 BP, HR, EF%: Reviewed (HR 48 - has ranged in low 50s for most of the morning) List meds needing interventions: Has orders for lisinopril 40mg daily, atenolol 50mg daily and amlodipine 10mg daily QTc Review QTc: Reviewed (404 from 06/25/25) IV to PO Switch IV Medications: Reviewed (heparin infusion) Home Meds Home Med List reviewed: Intervened Relevent Home Meds Not ordered & why?: metformin (has order for SS insulin) Changed tadalafil to patients own order (non-formulary). Reached out to nurse to see if this could be brought in. Waiting to hear back. Current Meds Current Medication Order Review: Intervened Comments: Changed IV ED access order
[2025-06-25] MEDS: Cyanocobalamin 1000 MCG/ML VIAL IM/SC (17:34)
[2025-06-25 17:46] LABS: PTT Activated 107.3 sec (20.6-30.2)
[2025-06-25] MEDS: Heparin in 0.45% NaCl 25,000 UNIT/250 ML BAG 14.5 UNIT IVINF (19:29)
--- NOTE | 2025-06-26 | DI.US_ITS ---
APPROVED REPORT EXAM: Comprehensive 2D, Doppler, and color-flow Echocardiogram Patient Location: In-Patient Room/Bed: 230 Glass Carrier: Soco [place]on RDCS (AE) Indications: Bilateral PE, Right heart strain? Other Information Study Quality: Adequate Conclusion Normal left ventricular wall thickness and chamber size. Ejection fraction is 60%. Wall motion is normal Normal right ventricular size and function Both atria are normal in size Aortic valve is calcified. There is moderate to severe aortic stenosis with a peak gradient of 55, mean 38 mmHg. Calculated aortic valve area is 1.1 cm??. There is mild aortic regurgitation. Mild mitral and tricuspid regurgitation. Right ventricular systolic pressure could not be estimated Ascending aorta measured 3.6 cm Wall motion Left Ventricle The left ventricle is normal size. The left ventricular systolic function is normal. The left ventricular ejection fraction is within the normal range. There is normal left ventricular wall thickness. There is normal LV segmental wall motion. There is no ventricular septal defect visualized. LVEF is 59%. Right Ventricle The right ventricle is normal size. The right ventricular systolic function is normal. Atria The left atrium size is normal. The right atrium size is normal. The interatrial septum is intact with no evidence for an atrial septal defect. Aortic Valve Aortic valve is calcified. Number of aortic valve leaflets could not be assessed. Peak aortic valve gradient is54.73_mmHg. Highest mean aortic valve gradient is 37.55mmHg. Calculated MARVIN by the continuity equation is 1.0cm2. Moderate aortic stenosis. Mild aortic regurgitation. Mitral Valve The mitral valve is normal in structure. No evidence of mitral valve stenosis. Mild mitral regurgitation. Tricuspid Valve The tricuspid valve is normal in structure. There is no tricuspid valve stenosis. Mild tricuspid regurgitation. Unable to assess PA pressure. Pulmonic Valve The pulmonary valve is normal in structure. There is no pulmonic valvular stenosis. Trace pulmonic regurgitation. Great Vessels The aortic root is normal in size. The ascending aorta is mildly dilated. Aortic arch is not well visualized. IVC is normal in size and collapses >50% with inspiration. Pericardium There is no pericardial effusion. 2D Dimensions IVSD d PLAX 1.00 cm M: 0.6-1.2 Ao Root d 3.31 cm M: 3.1 - 3.7 LVPW d PLAX 1.00 cm M: 0.6 - 1.2 Ao Asc Diam d 3.60 cm M: 2.6 - 3.4 LVID d PLAX 4.90 cm M: 4.2 - 5.8 LVDs 3.38 cm M: 2.5 - 4.0 LV EF Teichholz 58.5 % FS 31.02 % LV EDV (Teich) 112.6 mL LV ESV (Teich) 46.7 mL M-Mode TAPSE 2.13 cm (M/F) >1.7 Auto EF LV EDV A4C 131.8 mL LV EDV A2C 164.7 mL LV EDV BP 148.3 mL LV ESV A4C 54.5 mL LV ESV A2C 70.9 mL LV ESV BP 61.4 mL LVEF(%) A4C 58.7 % LVEF(%) A2C 56.9 % LVEF(%) BP 58.6 % LV SV A4C 77.3 ml LV SV A2C 93.7 ml LV SV BP 87.0 ml LV CO A4C 4.0 L/min LV CO A2C 4.6 L/min LV CO BP 4.3 L/min HR A4C 52.25 BPM HR A2C 49.59 BPM LV EDV Index (BP) RV Strain Global Peak Long. Strain A4C 18.43 Global Peak Long. Strain A4C FW 22.35 LA Volume LA Length A4C 5.8 cm LA Length A2C 5.4 cm LA Area A4C s 19.21 cm2 LA Area A2C s 17.19 cm2 LA Vol A4C A-L 53.75 mL LA Vol A2C A-L 46.66 mL LA Vol Biplane A-L 52.1 mL LA Vol/BSA A4C A-L LA Vol/BSA A2C A-L LA Vol/BSA BP A-L 24.4 mL/m2 LA Vol A4C MOD 48.9 mL LA Vol A2C MOD 44.7 mL LA Vol BP MOD 48.4 mL RA Volume RA Area A4C 14.9 cm2 RA ESV A4C (A-L) 31.2mL RA Vol/BSA A4C A-L RA Length A4C 6.1 cm RA ESV A4C (MOD) 29.7mL LV Diastology MV E' medial 0.067 (>0.07 m/s) MV E Vmax 0.90 (0.4-1.3 m/s) MV E/E' MED 13.38 (<14) MV A Vmax 1.10 (0.4-1.3 m/s) MV E' lateral 0.082 (>0.1 m/s) E/A Ratio 0.8 MV E/E' LAT 10.91 (<14) MV E' Average 0.075 m/s MV E/E'(average) 12.02 Aortic Valve AoV Vmax 3.70 m/s LVOT Vmax 1.23 m/s AoV Peak Grad 54.6 mmHg LVOT Peak Grad 6.0 mmHg AoV Area (Vmax) 1.05 cm2 LVOT VTI 0.366 m AoV VTI 1.118 m LVOT Mean Grad 3.8 mmHg AoV Mean Blas. 2.97 m/s LVOT SV 116.30 mL AoV Mean Grad 37.6 mmHg LVOT Diam s 2.00 cm AoV Area (VTI) 1.04 cm2 AV Regurg Peak Gr. 54.73 mmHg Velocity Ratio 0.33 AR Decel [place] 1.4m/sec2 AR DT 2683 msec AR PHT 778 msec AR Vmax 3.69 m/s Mitral Valve MV DT 254 (160-240 msec) MV Vmax TIPS 0.90 m/s MV Mean Grad 1.0 (<2mmHg) MV VTI 0.410 m Pulmonary Valve PV Vmax 1.09 (0.5-1.5 m/s) RVOT Vmax 0.71 m/s PV Peak Grad 4.8 mmHg RVOT Peak Gr. 2.0 mmHg PV Mean Blas 0.80 m/s RVOT VTI 0.206 m PV Mean Grad 2.9 mmHg RVOT Mean Gr. 1.3 mmHg Tricuspid Valve RA Pressure 3.00 mmHg TV S' 0.13 m/s
[2025-06-26 00:41] LABS: PTT Activated 69.0 sec (20.6-30.2)
[2025-06-26 06:18] VITALS: BP 136/83; PULSE 53; RESP 18; TEMP 36.1; O2SAT 93
[2025-06-26 06:58] LABS: PTT Activated 46.5 sec (20.6-30.2)
[2025-06-26 06:59] LABS: Anion Gap 4.5 mmol/L (3-11); BUN 29 mg/dL (7-18); CO2 27.5 mmol/L (21.0-32.0); Calcium 8.0 mg/dL (8.5-10.1); Chloride 107 mmol/L (98-107); Estimated GFR 49.25 (mL/min/1.73m2); Glucose 151 mg/dL (74-106); Magnesium 2.0 mg/dL (1.8-2.4); Potassium 5.6 mmol/L (3.5-5.1); Sodium 139 mmol/L (136-145)
[2025-06-26 07:08] LABS: Calculated LDL 96 mg/dL (<100); Cholesterol 175 mg/dL (<200); HDL Cholesterol 49 mg/dL (>or=40); Triglyceride 154 mg/dL (<150)
[2025-06-26 07:46] VITALS: BP 122/47; PULSE 48; RESP 16; TEMP 36.4; O2SAT 93
[2025-06-26] MEDS: Insulin Aspart 300 UNITS/3 ML PEN SC ×2 (09:18→12:11)
[2025-06-26] MEDS: Preservision CAPSULE 1 CAP PO (09:19)
[2025-06-26] MEDS: Cyanocobalamin 500 MCG TAB 1000 MCG PO (09:19)
[2025-06-26] MEDS: Atorvastatin 40 MG TAB PO (09:19)
[2025-06-26] MEDS: Omeprazole 20 MG CAPCR PO (09:19)
[2025-06-26] MEDS: Aspirin E.C. 81 MG TABEC PO (09:19)
[2025-06-26] MEDS: amLODIPine 5 MG TAB 10 MG PO (09:19)
[2025-06-26] MEDS: Normal Saline Flush 10 ML SYR IVP (09:20)
[2025-06-26] MEDS: Atenolol 50 MG TAB PO (09:20)
[2025-06-26] MEDS: Heparin in 0.45% NaCl 25,000 UNIT/250 ML BAG 16.5 UNIT IVINF (09:27)
[2025-06-26] MEDS: Lisinopril 20 MG TAB 40 MG PO (10:23)
[2025-06-26 12:06] VITALS: BP 119/99; PULSE 47; RESP 16; TEMP 36.5; O2SAT 98
[2025-06-26 13:14] VITALS: O2SAT 93
[2025-06-26 13:57] LABS: PTT Activated 115.6 sec (20.6-30.2)
--- NOTE | 2025-06-26 15:16 | W.NUTRFU ---
Date of service: 06/26/25 Time of Service: 15:16 Nutrition Note NOTE: met with Bill after chart review. A1c 7.3% last month tolerating consistent carb/heart healthy diet - 100% at meals. anticipates d/c shortly. reviewed outpatient nutrition services here if he would like to sit and go over nutrition needs/get guidance with any management of chronic conditions via MNT. found to be b12 deficient - d/c order for supplement. will remain available post discharge for outpatient nutrition guidance - card given Time Spent in Nutritional Counseling and Treatment: 10 min
--- NOTE | 2025-06-26 15:28 | PDOC.CMDIS ---
Date of service: 06/26/25 Time of Service: 15:28 LACE Index Scoring Tool Questions: Length of Stay (in days): 1 Was the patient admitted via the E.D.?: Yes Comorbidities: Diabetes w/o Complication and Liver or Renal Disease E.D. Visits: 2 Answers: Total Score: 11 Risk of Readmission: High Risk Care Management Discharge Plan Reason for Hospitalization: Pulmonary [place] Discharge Plan: Bill is discharged home via private vehicle with Salena. He will follow up with community providers and continue per plan of care. No new services are ordered on discharge. Patient/Family Education Needs: Review discharge instructions and plan to follow up after discharge. Discuss ask me three.
--- NOTE | 2025-06-26 15:37 | PDOC.CMPRO ---
Date of service: 06/26/25 Time of Service: 15:37 Care Management Progress Note Progress Note Text Progress Note Text: Shaji was sitting in a recliner and appeared to be sleeping when CM met with him. He was easily awakened and engaged in conversation. He was not wearing supplemental O2 and reported that he is feeling well. Today's goal was for him to wean off O2 prior to discharge, which he has and appears to be tolerating. Per pt, he is planning to discharge home later today and his s/o Salena will pick him up when hes ready. CM will follow. Discharge Potential Discharge Needs: PCP F/U Appt Anticipated Barriers to Discharge: None Identified Patient/Family Education Needs: Review discharge instructions, discuss Ask Me Three Transportation: Private vehicle Plan: Anticipate Shaji will discharge home via private vehicle with Salena once medically cleared. No new services are anticipated at this time. CM will continue to follow and support discharge planning considerations as needed. Social Determinants of Health Screening Will the Patient Participate in the Screening?: Unable to obtain
[2025-06-26 15:48] VITALS: BP 151/66; PULSE 47; RESP 16; TEMP 36.7; O2SAT 93
[2025-06-26] MEDS: Apixaban 5 MG TAB 10 MG PO (17:50)
--- NOTE | 2025-06-26 18:13 | W.PM.DS.N ---
Date of service: 06/26/25 Time of Service: 18:13 DS: Diagnosis Discharge Diagnosis (1) Pulmonary embolism: Status: Chronic (2) Acute hypoxemic respiratory failure: Status: Acute (3) Peripheral vascular disease: Status: Chronic (4) Essential hypertension: Status: Chronic (5) Diabetes mellitus: Status: Chronic (6) Pararenal abdominal aortic aneurysm (AAA) without rupture: Status: Acute (7) BPH w/o urinary obs/LUTS: Status: Chronic (8) Hypomagnesemia: Status: Acute (9) CKD stage 3a, GFR 45-59 ml/min: Status: Acute (10) Low vitamin B12 level: Status: Acute (11) Hypoaldosteronism: Status: Chronic Discharge Plan Disposition Patient Disposition: Home Condition: Good Discharge Details Reason For Visit: Pulmonary Emboli Admit Date/Time: 06/25/25 07:53 Admit Provider: Tommy Leyva Attending Provider: Tommy Leyva [facility] Hospital Course: 84 yo M with type 2 DM, HTN, PAD with repaired AAA, CKD3a, who presented with sudden onset pleuritic right flank pain and shortness of breath and was diagnosed with pulmonary embolus. He initially required 2 liters oxygen per NC. CTA chest/abdomen/pelvis showed intact AAA repair with now leaking, and did not show signs of cardiac strain. Echocardiogram showed normal LVEF as well as normal RV size and function. Initial plan was transfer to but this was cancelled after another discussion with cardiology per patient preference. By the second day on heparin drip his pain had resolved and he was no longer hypoxic at rest or with walking. He was transitioned to oral apixaban and discharged home. LE vascular u/s did not show DVTs. He had spent 6 hours on his tractor the day prior to admission, but he had no prolonged immobility. Plan was to anticoagulate for at least 3 months with ongoing anticoagulation based on a discussion of risks and benefits. Aspirin was stopped. He had mildly elevated potassium, which he has chronically. This was not treated, but should be followed. because of mild anemia and low platelets and metformin use, B12 level done, which was low. He was given 1000mcg shot x 1, and started on daily SL supplementation. Recommendations for Follow Up Recommended tests to be ordered by follow up provider: 4-7 days for BMP/Mg before PCP follow up repeat B12 levels in 3 months Home Meds and New Rx's Prescriptions: New apixaban 5 mg tablet See Rx Instructions .ROUTE .COMPLEX Qty: 74 2RF Rx Instructions: 10mg po BID for 7 days, then 5mg po BID cyanocobalamin (vitamin B-12) 1,000 mcg lozenge 1,000 mcg sublingual DAILY Qty: 90 3RF Continued tadalafil 5 mg tablet See Rx Instructions .ROUTE .COMPLEX Qty: 90 3RF Dose Instruction: TAKE 1 TABLET DAILY FOR URINATION Rx Instructions: TAKE 1 TABLET DAILY FOR URINATION omeprazole magnesium [Prilosec OTC] 20 MG tablet,delayed release (DR/EC) 20 mg PO DAILY Qty: 90 Rx Instructions: for persistent reflux esophagitis amlodipine 5 mg tablet See Rx Instructions .ROUTE .COMPLEX Qty: 180 3RF Dose Instruction: TAKE 2 TABLETS DAILY Rx Instructions: TAKE 2 TABLETS DAILY lisinopril 40 mg tablet 40 mg PO DAILY Qty: 90 3RF metformin 1,000 mg tablet 1,000 mg PO BID Qty: 180 3RF atenolol 50 mg tablet 50 mg PO DAILY Qty: 90 3RF atorvastatin 40 mg tablet See Rx Instructions .ROUTE .COMPLEX Qty: 90 3RF Dose Instruction: TAKE 1 TABLET DAILY TO LOWER CARDIOVASCULAR RISK, LOWER CHOLESTEROL Rx Instructions: TAKE 1 TABLET DAILY TO LOWER CARDIOVASCULAR RISK, LOWER CHOLESTEROL PreserVision AREDS 1 EACH capsule 1 tab PO BID Discontinued aspirin [Aspir-81] 81 MG tablet,delayed release (DR/EC) 81 mg PO DAILY Discharge Instructions Instructions: Pulmonary Embolism (Blood Clot in the Lungs) (DC) Additional Instructions: take the new blood thinner apixaban as prescribed. The higher dose is for the first 7 days. You should STOP the ASPIRIN your vitamin b12 was low. Take the sublingual supplement daily. Stand Alone Forms: Nursing Discharge Form Referrals: Fabián Dawn DO [Primary Care Provider, Medicine] Referral Note: Please call to set up follow up appointment. Activity:: Activity as Tolerated Equipment/Supplies:: No Equipment Needed Diet:: As Tolerated Discharge Orders Discharge Orders: Discharge Order (Routine); Ordered 06/26/25 Ordered By: Tommy Leyva DS: Summary Time Spent with Patient providing and/or coordinating discharge services: Greater than 30 minutes Status at Discharge Functional status at discharge: independent ambulation Overall status at discharge: patient is back to baseline Mental Status: mental status grossly normal Speech and Movement: speech and movement normal Mood: congruent mood Affect: normal affect Exam Narrative Exam Narrative: GEN: Alert and oriented. No acute distress at rest or walking LUNGS: No distress, CTAB except diminished with slight rale right base. CV: RRR with 3/6 ystolic murmur (not new). No gallops, or rubs. EXT: no cyanosis, clubbing, or edema, warm. Psych Mental Status: mental status grossly normal Speech and Movement: speech and movement normal Mood: congruent mood Affect: normal affect DS: Data Vitals/I&O Vitals and I&O: Vital Signs Temperature 36.7 C 06/26/25 15:48 Temperature Source Temporal Artery Scan 06/26/25 15:48 Pulse 47 L 06/26/25 15:48 Pulse Rhythm Regular 06/25/25 09:39 Pulse 55 L 06/25/25 09:20 Respiratory Rate 16 06/26/25 15:48 Respiratory Effort Normal, Non-Labored 06/25/25 09:39 Respiratory Depth Normal 06/25/25 09:39 Respiratory Pattern Normal 06/25/25 09:39 Blood Pressure 151/66 H 06/26/25 15:48 Blood Pressure Mean 94 06/26/25 15:48 Pulse Oximetry 93 06/26/25 15:48 Oxygen Delivery Method Room Air 06/26/25 15:48 Oxygen Flow Rate 0 06/26/25 15:48 Pain Level 0 06/26/25 06:18 Comment RN notified 06/25/25 15:43 Comment 2LNC 06/25/25 08:16 Intake & Output 06/25/25 06/26/25 06/26/25 23:59 11:59 23:59 Intake Total 250 / 400 356.950 / 434.775 77.825 / 434.775 Output Total 325 / 325 Balance 250 / 400 31.950 / 109.775 77.825 / 109.775 Weight 99 kg Intake: IV 250 / 400 206.950 / 284.775 77.825 / 284.775 Oral 150 / 150 Output: Urine 325 / 325 Other: Urine Color Straw Urine Appearance Clear Data Completed and Pending Labs on day of discharge: Labs from last 24 hours 06/26/25 06/26/25 06/26/25 21:19 12:45 06:06 APTT Pending 115.6 H* 46.5 H Sodium 139 Potassium 5.6 H Chloride 107 Carbon Dioxide 27.5 Anion Gap 4.5 BUN 29 H Creatinine 1.4 H Est GFR (CKD-EPI 2020) 49.25 Glucose 151 H Calcium 8.0 L Magnesium 2.0 Triglycerides 154 H Total Cholesterol 175 LDL Cholesterol, Calc 96 HDL Cholesterol 49 06/26/25 00:16 APTT 69.0 H Sodium Potassium Chloride Carbon Dioxide Anion Gap BUN Creatinine Est GFR (CKD-EPI 2020) Glucose Calcium Magnesium Triglycerides Total Cholesterol LDL Cholesterol, Calc HDL Cholesterol PFSH All Active Problems (Updated 06/25/25 @ 17:11 by Tommy Leyva) Low vitamin B12 level (Acute) CKD stage 3a, GFR 45-59 ml/min (Acute) Chronic hyperkalemia (Acute) Acute hypoxemic respiratory failure (Acute) Hypomagnesemia (Acute) Pulmonary embolism (Chronic) Skin lesion (Acute) Degenerative arthritis of knee, bilateral (Acute) Actinic keratoses (Acute) Squamous cell carcinoma of cheek (Acute) Asymmetrical sensorineural hearing loss (Acute) Impacted cerumen, right ear (Acute) Contrast-induced nephropathy (Acute) Impacted cerumen, bilateral (Acute) Hyperkalemia (Acute) Pararenal abdominal aortic aneurysm (AAA) without rupture (Acute) 01/03/2023 - 5.4 cm (needs to meet threshold of 5.5 cm before action can be taken) Will repeat CT in 6 months - Dr Jun Wright 12/27/2023 - Now at 5.7 cm, proceeding with PMEG FEVAR Renal mass, left (Acute 01/20/22) Elevated blood pressure reading (Acute) Asymmetrical hearing loss of both ears (Chronic) note: 10/15/20 not interested in hearing test per Dr. Barahona Conductive hearing loss in right ear (Acute) Chronic serous otitis media, right ear (Acute) Dr Barahona. 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) Sensorineural hearing loss, bilateral (Chronic 07/09/15) Peripheral vascular disease (Chronic) s/p bilateral carotid endarterectomies ~2002 Obesity, unspecified (Chronic 02/08/12) Hypoaldosteronism (Chronic 11/04/16) ttendency to hyperkalemia: no salt substitutes Hyperlipidemia (Chronic 02/08/12) Heart murmur, systolic (Chronic 05/31/16) mild /AR on ECHO 06/06/16, EF 60% BPH w/o urinary obs/LUTS (Chronic) bx neg 05/2010 Gastroesophageal reflux disease (Chronic 02/08/12) Essential hypertension (Chronic 01/31/00) h/o hctz, lisinopril; d/c hctz 11/2013; d/c lisinopril 12/2013, resume lisinopril 06/2014 Elevated PSA (Chronic 06/20/16) Diabetes mellitus (Chronic 04/29/02) DX 2001 MULTIPLE FBS>126; ONE PP 276 IN 12/2005; A1C 7.0 IN 2002; CONTROL DIET, METFORMIN, EXERCISE Alkaline phosphatase raised (Chronic 02/08/12) bone (normal GGT repeatedly) Medical History Abdominal aortic aneurysm (AAA) without rupture (04/29/16) Abdominal US: 5cm AAA above bifurcation; 4.8 x 4.2 by CTA [facility] [place], f/u 09[place]2016 [facility] [place] Bruit 04/17/19 5.1 cm , 10/21/19 5.4 cm, repeat 6 mos. 06/22/20 AAA=5.6 cm Surgical History Hx of nasal septoplasty Hx of excision of mass (~07/2024) Area on R facial cheek Status post aortic coarctation stent placement 5 stents, per pt H/O carotid endarterectomy H/O bilateral cataract extraction Hx of colonoscopy cataract extraction (07/21/15) intraocular lens implant right Dr Ortiz; also Left cataract extraction (07/07/15) intraocular lens implant right Dr Ortiz; also Left Prostate Biopsy (06/08/10) [facility] for elevated PSA, neg Extraction of cataract Family History Mother , old age at age 95. No problems noted. Father , liver problems at age 68. Liver disease Brother , brain aneurysm at age 64. No problems noted. Brother Age: 91 Neoplasm Social History (Updated 06/25/25 @ 16:58 by Tommy Leyva) Smoking/Tobacco Use Status: Former Tobacco Use Quit Date: 08/30/83 Tobacco: How many years used: 30 Smoking risk assessment performed?: Yes Alcohol Intake: current Alcohol Intake frequency: a few times a week Alcohol type: hard liquor Drug use: Never Substance use type: does not use Details: alcohol: t-5 Adopted: No Caregiver/Support person: No Household members: significant other Housing: house Number of Children: 2 Communication Needs: Hard of Hearing and Corrective Lenses Education Level: high school Do you need help understanding health information?: Never Pets and animals: Yes Pets and animals: dog(s) Do you think of yourself as: straight/heterosexual Current gender identity: male What is your relationship status?: living with partner Do you belong to any clubs or organized social groups?: yes Panel score (0-1 are the most socially isolated patients): 2 What type of physical activity do you participate in: other Details: physically active daily/woodpile Duration: 60-90 minutes/day Frequency: daily Amber/Jain: Taoism Special amber needs: No Seatbelt use: always Drive intox or ride w/intox cdl company driver: No Working smoke detector in home: Yes Carbon monox detector in home: Yes Do you feel safe at home: Yes Do you feel safe in your relationship?: Yes Additional Social history: Lives in home in [place] with partner Salena. Active, cares for self. Time Spent with Patient Time Spent with Patient: <45 minutes Time was spent: preparing to see the patient(eg.review tests), obtaining and/or reviewing separately otained hiistory, ordering medications,tests, procedures, referring, communicating with other health complex care nurse practitioner, indepentently interpreting results, counseling the patient and care coordination
--- NOTE | 2025-06-28 13:45 | NUR.NOTE ---
Access chart to reconcile EKG orders with EKG's in [facility]. Duplicate order cancelled. Nursing Note:
== END 2025-06-26 18:31 | disposition home or self-care (01) | DRG 175 ==
LOC: ER 08:24 → MS 09:28
PROVIDERS: Family Medicine; Admitting Provider Family Medicine; Emergency Provider Student in an Organized Health Care Education/Training Program; PCP Family Medicine; Responsible Provider Family Medicine; Visit Provider Family Medicine
DX: I26.99 Other pulmonary embolism without acute cor pulmonale (principal); J96.01 Acute respiratory failure with hypoxia; I73.9 Peripheral vascular disease, unspecified; I71.41 Pararenal abdominal aortic aneurysm, without rupture; N40.0 Benign prostatic hyperplasia without lower urinary tract symptoms; E83.42 Hypomagnesemia; N18.31 Chronic kidney disease, stage 3a; Z95.828 Presence of other vascular implants and grafts; E53.8 Deficiency of other specified B group vitamins; I12.9 Hypertensive chronic kidney disease with stage 1 through stage 4 chronic kidney disease, or unspecified chronic kidney disease; E11.22 Type 2 diabetes mellitus with diabetic chronic kidney disease; E26.9 Hyperaldosteronism, unspecified; E87.5 Hyperkalemia; M17.0 Bilateral primary osteoarthritis of knee; E11.3213 Type 2 diabetes mellitus with mild nonproliferative diabetic retinopathy with macular edema, bilateral; I65.23 Occlusion and stenosis of bilateral carotid arteries; Z87.891 Personal history of nicotine dependence; E66.9 Obesity, unspecified; E78.5 Hyperlipidemia, unspecified; I35.2 Nonrheumatic aortic (valve) stenosis with insufficiency; K21.9 Gastro-esophageal reflux disease without esophagitis; Z79.84 Long term (current) use of oral hypoglycemic drugs; D64.9 Anemia, unspecified; D69.6 Thrombocytopenia, unspecified; Z68.32 Body mass index [BMI] 32.0-32.9, adult
CPT/HCPCS: 00123; 36415; 36416; 71275; 80048; 80053; 80061; 82962; 83690; 93005; 93306; 96365; 96367; 96375; 99291; 74174; 81003; 82607; 83735; 83880; 84484; 85025; 85610; 85730; 93010; 93970; 99223; 99238; J0131; J1644; J1815; J2405; J3420; J3475

== ENCOUNTER → 2025-07-22 09:33 | Outpatient (BNVA) | payer MEDICARE, OTHER, SELFPAY | PROVIDERS: PCP Family Medicine; Visit Provider Urology | DX: N40.1 Benign prostatic hyperplasia with lower urinary tract symptoms (principal); R39.12 Poor urinary stream; Z79.01 Long term (current) use of anticoagulants | CPT/HCPCS: 99214 ==

== ENCOUNTER 2025-08-15 10:50 | Outpatient (CLI) | payer MEDICARE, OTHER, SELFPAY ==
[2025-08-15 12:24] LABS: Anion Gap 11.1 mmol/L (3-11); BUN 18 mg/dL (7-18); CO2 22.9 mmol/L (21.0-32.0); Calcium 8.9 mg/dL (8.5-10.1); Chloride 104 mmol/L (98-107); Glucose 180 mg/dL (74-106); Magnesium 1.4 mg/dL (1.8-2.4); Potassium 5.5 mmol/L (3.5-5.1); Sodium 138 mmol/L (136-145)
== END 2025-08-15 10:51 | disposition home or self-care (01) ==
LOC: LBO 09-09 10:50
PROVIDERS: PCP Family Medicine; Visit Provider Family Medicine
DX: E83.42 Hypomagnesemia (principal); I10 Essential (primary) hypertension
CPT/HCPCS: 36415; 80048; 83735